=== PATIENT | female | born 1950 | race Caucasian/White ===

== ENCOUNTER → 2025-01-10 | Outpatient (CLI) | payer MEDICARE, BC, SELFPAY ==
--- NOTE | 2025-01-10 13:18 | XR_ITS ---
EXAMINATION: Lumbar spine 3 views TECHNIQUE: AP lateral, lateral lower lumbar spine 3 views Date and time: January 10, 2025, 1342 hours INDICATION: Lower back pain beginning 1 week ago. FINDINGS: Adequate alignment lumbar vertebral bodies Multiple sclerotic foci poorly defined within lumbar vertebral bodies Dense sclerotic foci versus kyphoplasty T12 No acute lumbar fracture Mild to moderate diffuse lumbar disc narrowing Prominent sclerosis involving the sacrum as well as right iliac bone and left supra-acetabular iliac bone IMPRESSION: Osteoblastic metastases Recommend whole-body bone scan follow-up Consider staging CT chest abdomen pelvis post intravenous contrast follow-up
[2025-01-10 14:56] LABS: Thyroid Stimulating Hormone 1.90 uIU/mL (0.55-4.78); Vitamin D 25 Hydroxy Total 25.2 ng/mL (7.3-40.2)
== END | disposition home or self-care (01) ==
LOC: CDIM 13:16 → COPL 13:53
PROVIDERS: PCP Family Medicine; Referring Provider Student in an Organized Health Care Education/Training Program; Visit Provider Radiology Diagnostic Radiology
DX: C79.51 Secondary malignant neoplasm of bone (principal); R53.1 Weakness
CPT/HCPCS: 36415; 72100; 82306; 84443

== ENCOUNTER → 2025-01-22 | Outpatient (CLI) | payer MEDICARE, BC, SELFPAY ==
[2025-01-22 13:24] LABS: Basophils # (Auto) 0.1 Thou/mm3 (0.0-0.2); Basophils % (Auto) 1 % (0-2.5); Eosinophils # (Auto) 0.0 Thou/mm3 (0.0-0.5); Eosinophils % (Auto) 0 % (0-10); Hematocrit 43.7 % (36.0-46.0); Hemoglobin 13.9 g/dL (12.0-16.0); Immature Granulocytes Auto 0.04 Thou/mm3 (0.00-0.00); Lymphocytes # (Auto) 1.0 Thou/mm3 (1.0-4.8); Lymphocytes % (Auto) 9 % (10-50); Mean Corpuscular HGB Conc 31.8 g/dl (31.0-37.0); Mean Corpuscular Hemoglobin 26.5 pg (25.0-35.0); Mean Corpuscular Volume 83 fL (80-100); Monocytes # (Auto) 0.7 Thou/mm3 (0.0-0.8); Monocytes % (Auto) 6 % (0-12); Neutrophils # (Auto) 9.6 Thou/mm3 (1.8-7.7); Neutrophils % (Auto) 84 % (37-80); Nucleated Red Blood Cell # 0.00 Thou/mm3 (0.00-0.00); Nucleated Red Blood Cell % 0 /100 WBC (0); Platelet Count 486 Thou/mm3 (140-440); RDW Standard Deviation 46.0 fL (36.4-46.3); Red Blood Count 5.25 Miln/mm3 (4.00-5.20); White Blood Count 11.4 Thou/mm3 (3.6-11.0)
[2025-01-22 13:35] LABS: Glucose Estimated Average 108 mg/dL (80-131); Hemoglobin A1C 5.4 % Hgb (4.8-6.0)
[2025-01-22 13:51] LABS: Alanine Aminotransferase 9 U/L (10-49); Albumin, Serum 4.7 gm/dL (3.4-4.8); Albumin/Globulin Ratio 2.0 (1.2-2.2); Alkaline Phosphatase 772 U/L (46-116); Anion Gap 14 (7-16); Aspartate Amino Transferase 41 U/L (0-34); BUN/Creatinine Ratio 24 Ratio (12-20); Bilirubin,Total 0.5 mg/dL (0.3-1.2); Blood Urea Nitrogen 17 mg/dL (9-23); Calcium 9.2 mg/dL (8.3-10.6); Calcium (Corrected) 9.2 mg/dL (8.5-10.1); Carbon Dioxide 27.9 mMol/L (20.0-31.0); Cardiac Risk Estimate 3.0 RATIO (3.7-5.6); Chloride 98 mMol/L (98-107); Cholesterol 190 mg/dL (132-200); Creatinine (Component) 0.7 mg/dL (0.6-1.3); Globulin 2.4 gm/dL (2.3-3.5); Glucose 121 mg/dL (74-106); HDL Cholesterol 64 mg/dL (40-60); LDL Cholesterol,Calculated 106 mg/dL (0-130); Osmolality,Calculated 281 (275-295); Potassium 4.0 mMol/L (3.4-5.1); Sodium 140 mMol/L (136-145); Total Protein 7.1 gm/dL (5.7-8.2); Triglycerides 99 mg/dL (30-150); eGFR > 60 See Note
== END | disposition home or self-care (01) ==
LOC: COPL 12:30
PROVIDERS: PCP Family Medicine; Referring Provider Student in an Organized Health Care Education/Training Program; Visit Provider Student in an Organized Health Care Education/Training Program
DX: Z00.00 Encounter for general adult medical examination without abnormal findings (principal)
CPT/HCPCS: 36415; 80053; 80061; 83036; 85025

== ENCOUNTER → 2025-01-23 | Outpatient (CLI) | payer MEDICARE, BC, SELFPAY ==
--- NOTE | 2025-01-23 12:02 | XR_ITS ---
Examination: CT chest with intravenous contrast CT abdomen with intravenous contrast CT pelvis with intravenous contrast 2-D coronal and sagittal reconstructions Time of exam: January 23, 2025, 1238 hours INDICATIONS: Diagnosis secondary malignant neoplasm of bone, lower back pain 2 months, osteoblastic metastases on plain films lumbar spine January 10, 2025, staging CTDI: vol (mGy) : 7.09 DLP: (mGycm): 171 Technique: Multiple axial images of the chest, abdomen and pelvis with intravenous contrast, 3.0 mm slice thickness. Images obtained post intravenous injection Isovue 370 60 cc. 2-D sagittal and coronal reconstructions. Low dose protocols were performed. One or more of the following dose reduction techniques were used; automated exposure control, adjustment of the mA and/or KV according to patient size, use of iterative reconstruction technique. Findings: No thoracic aortic aneurysmal dilatation or dissection No pulmonary artery filling defects High left para-aortic right tracheobronchial subcarinal right hilar lymphadenopathy Pulmonary mass in the right upper lobe, 6.3 x 5.0 x 7.7 cm which is compressing severely the right lower lobe bronchus coronal image 78 Large right pleural effusion 4 mm pulmonary nodule anterior segment left upper lobe 5 mm pulmonary nodule left lower lobe Miliary nodules in the right upper lobe Multiple right axillary lymph nodes, the largest 9 mm No visualized liver or splenic lesion Contracted gallbladder Spleen is not enlarged Mild nodular thickening left adrenal gland No pancreatic mass No hydronephrosis Aorta normal size No pericecal inflammatory change Retroverted uterus with abnormal markedly thickened endometrium, 22 mm Abundant stool in the rectum Thickening of the urinary bladder wall, urinary bladder is contracted Widespread osseous metastatic disease including severe pathologic fracture T11, retropulsion of this vertebral body at least 10 mm producing severe spinal stenosis Ribs sternum bones of the shoulders, sacrum pelvis and hips involved by osteoblastic metastases, expansile lesion left superior pubic ramus IMPRESSION: 6.3 x 5.0 x 7.7 cm pulmonary mass in the right upper lobe severely compressing the right lower lobe bronchus Multiple metastatic pulmonary nodules Large right malignant pleural effusion Right axillary lymphadenopathy Extensive mediastinal lymphadenopathy Mild nodular thickening left adrenal gland Abnormal markedly thickened uterine endometrium, recommend transabdominal transvaginal pelvic sonography follow-up Abnormal thickening of the urinary bladder wall, differential would include cystitis Widespread osseous metastatic disease including severe pathologic fracture T11 with severe spinal stenosis at this level, consider MRI of thoracic and lumbar spine postcontrast follow-up
== END | disposition home or self-care (01) ==
PROVIDERS: PCP Student in an Organized Health Care Education/Training Program; Referring Provider Student in an Organized Health Care Education/Training Program; Visit Provider Student in an Organized Health Care Education/Training Program
DX: R22.2 Localized swelling, mass and lump, trunk (principal); J91.0 Malignant pleural effusion; R59.0 Localized enlarged lymph nodes; E27.8 Other specified disorders of adrenal gland; N32.89 Other specified disorders of bladder; M84.48XA Pathological fracture, other site, initial encounter for fracture; M48.04 Spinal stenosis, thoracic region; R93.89 Abnormal findings on diagnostic imaging of other specified body structures; C78.00 Secondary malignant neoplasm of unspecified lung; C79.51 Secondary malignant neoplasm of bone; C34.91 Malignant neoplasm of unspecified part of right bronchus or lung; C79.9 Secondary malignant neoplasm of unspecified site
CPT/HCPCS: 71260; 74177; A4649; Q9967

== ENCOUNTER → 2025-01-27 | Outpatient (CLI) | payer MEDICARE, BC, SELFPAY ==
--- NOTE | 2025-01-27 12:30 | XR_ITS ---
Examination: Bone scan whole body, radioisotope Date and time of exam: January 27, 2025, 0803 hours INDICATIONS: Diagnosis secondary malignant neoplasm of the bone, lower back and abdominal pain beginning 2 weeks ago Technique: Study has been performed with intravenous administration of 25 mci 99M technetium MDP. Anterior, posterior whole body images are obtained. Images have been obtained including the lower extremities. Findings: Widespread osseous metastatic disease, including cervical thoracic and lumbar spine, sacrum, bones of the pelvis, bilateral hips, distal right femur and distal left femur, bilateral shoulders, right humerus, bilateral ribs, right cranial vault, left face IMPRESSION: Widespread osseous metastatic disease
== END | disposition home or self-care (01) ==
PROVIDERS: PCP Student in an Organized Health Care Education/Training Program; Referring Provider Student in an Organized Health Care Education/Training Program; Visit Provider Student in an Organized Health Care Education/Training Program
DX: C79.9 Secondary malignant neoplasm of unspecified site (principal); C79.51 Secondary malignant neoplasm of bone
CPT/HCPCS: 78306; A9503

== ENCOUNTER → 2025-02-10 | Outpatient (CLI) | payer MEDICARE, BC, SELFPAY ==
--- NOTE | 2025-02-10 10:30 | XR_ITS ---
Examination: CT chest with intravenous contrast CT abdomen with intravenous contrast CT pelvis with intravenous contrast 2-D coronal and sagittal reconstructions Time of exam: February 10, 2025, 1326 hours, comparison CT chest abdomen pelvis January 23, 2025 INDICATIONS: 7.7 cm pulmonary mass in the right upper lobe compressing the right lower lobe bronchus, metastatic pulmonary nodules, large malignant right pleural effusion, right axillary lymphadenopathy, extensive lymphadenopathy CTDI: vol (mGy) : 7.73 DLP: (mGycm): 524 Technique: Multiple axial images of the chest, abdomen and pelvis with intravenous contrast, 3.0 mm slice thickness. Images obtained post intravenous injection Isovue 370 60 cc. 2-D sagittal and coronal reconstructions. Low dose protocols were performed. One or more of the following dose reduction techniques were used; automated exposure control, adjustment of the mA and/or KV according to patient size, use of iterative reconstruction technique. Findings: Again noted large right pleural effusion No thoracic aortic aneurysm dilatation Transverse dimension main pulmonary artery segment 39 mm Stable pulmonary mass right upper lobe 5.2 x 6.4 cm encircling the right main pulmonary artery Pretracheal lymph nodes again noted Stable right axillary lymph nodes 4 mm pulmonary nodule left upper lobe, 5 mm pulmonary nodule left lower lobe Miliary nodules in the right upper lobe No visualized liver or splenic lesion No gallstones No pancreatic mass No renal or ureteral calculi Abdominal aorta is not enlarged Mild nodular thickening left adrenal gland No abdominal lymphadenopathy Abnormally thickened endometrium 28 mm Abundant stool in the rectum Thickening of the urinary bladder wall Widespread osseous metastatic disease, osteoblastic lesions involving all visualized bones, including pathologic fracture T11 with retropulsion of this vertebral body narrowing the spinal canal IMPRESSION: Pulmonary artery hypertension Again noted large mass right upper lobe encircling the right main pulmonary artery Mediastinal lymphadenopathy Metastatic pulmonary nodules Large right pleural effusion, likely malignant Widespread osseous metastatic disease, including severe pathologic fracture T11 vertebral body with retropulsion at least 10 mm producing spinal stenosis
== END | disposition home or self-care (01) ==
LOC: SCAT 09:52
PROVIDERS: PCP Student in an Organized Health Care Education/Training Program; Referring Provider Student in an Organized Health Care Education/Training Program; Visit Provider Student in an Organized Health Care Education/Training Program
DX: C79.51 Secondary malignant neoplasm of bone (principal); I27.21 Secondary pulmonary arterial hypertension; R59.0 Localized enlarged lymph nodes; C78.00 Secondary malignant neoplasm of unspecified lung; J90 Pleural effusion, not elsewhere classified; C79.9 Secondary malignant neoplasm of unspecified site
CPT/HCPCS: 71260; 74177; A4649; Q9967

== ENCOUNTER → 2025-02-17 | Outpatient (CLI) | payer MEDICARE, BC, SELFPAY ==
--- NOTE | 2025-02-17 09:35 | XR_ITS ---
Examination: Pelvic ultrasound, transabdominal, complete Technique: Transabdominal ultrasound of the pelvis performed using grayscale imaging Date and time of exam: February 17, 2025, 1024 hours INDICATIONS: Whole body pain 2 months FINDINGS: Uterus 7.7 cm endometrial solid mass 4.3 x 3.1 x 3.8 cm Endometrial stripe 3.1 cm Right ovary 2.9 cm arterial flow Left ovary 1.8 cm arterial flow Mild fluid in the cul-de-sac IMPRESSION: Solid endometrial mass 4.3 x 3.1 x 3.8 cm, differential would include malignant neoplasm of the endometrium Recommend MRI pelvis follow-up pre and postcontrast
--- NOTE | 2025-02-17 09:35 | XR_ITS ---
Examination: Transvaginal ultrasound of the pelvis, complete Technique: Transvaginal sonographic images pelvis performed using martínez scale imaging Exam date and time: February 17, 2025, 1039 hours INDICATIONS: Abnormally thickened endometrial stripe [address] examination February 10, 2025, history widespread osseous metastatic disease FINDINGS: Uterus 6.5 cm solid endometrial mass 3.4 x 3.3 x 3.9 cm Ovaries obscured by bowel gas IMPRESSION: Large vascular endometrial mass 3.4 x 3.3 x 3.9 cm, differential would include malignant neoplasm of the endometrium Recommend MRI pelvis follow-up pre and postcontrast.
== END | disposition home or self-care (01) ==
LOC: CDIM 09:20
PROVIDERS: PCP Family Medicine; Referring Provider Student in an Organized Health Care Education/Training Program; Visit Provider Student in an Organized Health Care Education/Training Program
DX: R19.09 Other intra-abdominal and pelvic swelling, mass and lump (principal)
CPT/HCPCS: 76830; 76856

== ENCOUNTER 2025-02-25 08:53 | Outpatient (RCR) | payer MEDICARE, BC, SELFPAY ==
--- NOTE | 2025-02-25 12:20 | CTCCONSULT_ITS ---
[facility] [address] [place], [place] [address] Consultation Note Date: 02/25/2025 MR#: [id number] Name: MANUEL NEGRONRLETICIA : 1950 Dx: C34.11 Malignant neoplasm of upper lobe, right bronchus or lung Attending physician. David Basilio MD Reason for consultation. Patient with suspected malignancy involving lung bone and uterus. History of Present Illness: Patient is a 74-year-old lady with symptoms of low back pain and had lumbar x-ray 01/10/2025 that revealed osteoblastic mets including sclerotic foci T12 area. Chest abdomen pelvis 01/23/2025 revealed a 6.3 x 5.0 x 7.7 central pulm mass right upper lobe severely compressing the right lower lobe bronchus. There are multiple metastatic pulmonary nodules large right malignant pleural effusion right axillar adenopathy extensive mediastinal lymphadenopathy. Bone scan 01/27/2025 revealed widespread osseous mets disease. Repeat CT abdomen pelvis 02/10/2025 revealed again the large right upper lobe mass encircling the right main pulmonary artery mediastinal lymphadenopathy metastatic pulmonary nodules right pleural effusion and osseous mets disease including pathological fracture T11 vertebral body. Pelvic ultrasound 02/17/2025 reveals solid endometrial mass 4.3 x 3.1 x 3.8 cm that suggested possible malignancy involving endometrium. Transvaginal ultrasound revealed a large vascular endometrial mass 3.4 x 3.3 x 3.9 cm. Right upper lobe lung biopsy reportedly has been ordered. Most recent labs 01/13/2025 shows WBC 11.4 hemoglobin 13.9 platelets 486 , moderate elevation of AST at 41 and marked elevation alk phos of 772. Patient feels weak and has a steady loss in weight but denies any significant pain. Past Medical History: Had chickenpox measles mumps as a child no recent major illness Meds vitamins Family history. 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 Physical Exam: General: Tired appearing lady no acute distress HEENT: Eyes nonicteric no oral lesions no cervical or cervical adenopathy CV: Chest clear station heart regular rate and rhythm ABD: Soft no organomegaly or tenderness EXT: No cyanosis clubbing or edema Neuro. Patient has no obvious signs of paralysis but feels weak overall. Assessment:#1. Patient with suspected malignancy involving lung bone uterus. #2 tumor markers CA125 CA 15-3. CEA CA 19?9 #3 lung biopsy reportedly has been ordered which will be checked. #4. MRI T-spine pelvis with and without contrast. #5. I will see her in 2 months or sooner for follow-up. Thank you for allowing me to evaluate this patient. Electronically signed by: Roly Sevilla MD, DABR 02/25/2025 12:18 PM
== END 2025-03-26 23:59 | disposition home or self-care (01) ==
LOC: SCTC 08:53
PROVIDERS: PCP Student in an Organized Health Care Education/Training Program; Referring Provider Student in an Organized Health Care Education/Training Program; Visit Provider Radiology Therapeutic Radiology
DX: C34.11 Malignant neoplasm of upper lobe, right bronchus or lung (principal); C79.51 Secondary malignant neoplasm of bone
CPT/HCPCS: 99213; G0463

== ENCOUNTER 2025-03-16 07:39 | Inpatient (IN) | payer MEDICARE, BC, SELFPAY ==
[2025-03-16] VITALS (8 sets, daily range): BP systolic 106–133; BP diastolic 67–92; PULSE 87–126; RESP 16–30; TEMP 36.1–37.8; O2SAT 94–100; BMI 22.8; BMI 24.5
--- NOTE | 2025-03-16 07:54 | EDNOTE_ITS ---
ED Weakness RME/HPI General Chief complaint: Weakness Stated complaint: GENERAL WEAKNESS Time Seen by Provider: 03/16/25 07:54 Arrival date/time: 03/16/25 07:39 RME / HPI RME / HPI Narrative: See [facility] for Dr. Sevilla's HPI documentation. Related Data Home Medications ?Medication ?Instructions ?Recorded ?Confirmed diclofenac sodium 3 % topical gel 1 applic topical BID 03/16/25 03/16/25 Allergies Allergy/AdvReac Type Severity Reaction Status Date / Time No Known Allergies Allergy Verified 03/16/25 08:06 Review of Systems Review of Systems Systems Reviewed: All systems reviewed, normal except as documented Past Medical History Past Medical History NEUROLOGIC: Negative Neurological Disorders CARDIAC: Negative Cardiac Disorders or Congestive Heart Failure RESPIRATORY: Negative Respiratory Disorders, Chronic Obstructive Pulmonary Disease (COPD) or Asthma GASTROINTESTINAL: Positive Colorectal Cancer; Negative Gastrointestinal Disorders GENITOURINARY: Negative Renal Disease ENT: Negative History of ENT Problems ENDOCRINE: Negative Endocrine Disorders, Diabetes Mellitus Type 1 or Diabetes Mellitus Type 2 HEMATOLOGIC: Negative Blood Disorders or Sickle Cell Disease OTHER HISTORY: Positive Hospitalization, Falls, Chicken Pox, Measles, Mumps, Cancer and Colorectal Cancer; Negative Autoimmune Disease, Down Syndrome, Developmental Delay, Shingles or Anesthesia Reactions Family History FAMILY HISTORY: Positive Family Cancer; Negative Family Psychiatric Problems, Family Respiratory Disorders, Family Cardiac Disorders, Family Gastrointestinal Problems, Family Genitourinary Problems, Family Endocrine Disorders, Family Reproductive Disorders or Family Musculoskeletal Disorders OTHER FAMILY HX: Mother had some type of cancer Surgical History OTHER SURGICAL HX: R.SIDE SURGERY FROM INFECTION Social History 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 Sevilla's physical exam documentation. Course Quality Measures none Orders Category Date Time Status CT Screening NOW Care 03/16/25 09:55 Completed EKG (ED ONLY) *Do not use* NOW Care 03/16/25 07:57 Completed Saline [Insert IV] NOW Care 03/16/25 07:57 Completed Straight [In and Out Catheter] X1 Care 03/16/25 07:[address] abdomen pelvis w con Stat Exams 03/16/25 09:[address] angio chest Stat Exams 03/16/25 09:[address] head/brain wo con Stat Exams 03/16/25 07:57 Completed EKG (ED Only) Stat Exams 03/16/25 07:57 Draft US venous doppler LE BI Stat Exams 03/16/25 09:55 Completed XR chest 1V portable Stat Exams 03/16/25 07:57 Completed XR shoulder RT min 2V Stat Exams 03/16/25 09:03 Completed BNP [B-Type Natriuretic Peptide] Stat Lab 03/16/25 08:30 Completed Beta Hydroxybutyrate Stat Lab 03/16/25 08:30 Completed Bilirubin,Direct Stat Lab 03/16/25 08:30 Completed Blood Culture (Lab) Stat Lab 03/16/25 08:30 Results CBC Stat Lab 03/16/25 08:30 Completed CK [Creatine Kinase] Stat Lab 03/16/25 08:30 Completed CMP [Comprehensive Metabolic Panel] Stat Lab 03/16/25 08:30 Completed CRP [C-Reactive Protein] Stat Lab 03/16/25 08:30 Completed D-Dimer Stat Lab 03/16/25 08:30 Completed ESR [Sed Rate (ESR)] Stat Lab 03/16/25 08:30 Completed Hemoglobin A1C [Glycohemoglobin w (eAG)] Stat Lab 03/16/25 08:30 Completed Lactate (Lactic Acid) Stat Lab 03/16/25 08:30 Completed Lipase Stat Lab 03/16/25 08:30 Completed Magnesium Stat Lab 03/16/25 08:30 Completed PT [Prothrombin Time with INR] Stat Lab 03/16/25 08:30 Completed PTT [Partial Thromboplastin Time] Stat Lab 03/16/25 08:30 Completed Procalcitonin Stat Lab 03/16/25 08:30 Completed TSH [Thyroid Stimulating Hormone] Stat Lab 03/16/25 08:30 Completed Troponin I Stat Lab 03/16/25 08:30 Completed UA, C/S IF [Urinalysis, C/S if Indicated] Stat Lab 03/16/25 08:30 Completed VBG [Venous Blood Gas] Stat Lab 03/16/25 08:30 Completed Azithromycin Inj [Zithromax Inj] 500 mg Med 03/16/25 13:57 Discontinued Sodium Chloride 0.9% 250 ml [Ns] 250 ml IV X1 Ondansetron Inj [Zofran Inj] Med 03/16/25 07:57 Discontinued 4 mg IVP X1 ONE Ringers Lactated 1000 ml [Lactated Ringers] 1,000 ml Med 03/16/25 07:57 Discontinued IV 500 mls/hr cefTRIAXone/D5w 1gm IV premix [Rocephin/D5w 1gm IV Med 03/16/25 13:57 Discontinued premix] 1 gm in 50 ml IV X1 Vital Signs Vital signs: Vital Signs Temperature 97.8 F 03/16/25 07:41 Pulse Rate 97 03/16/25 07:41 Respiratory Rate 16 03/16/25 07:41 Blood Pressure 122/78 03/16/25 07:41 Pulse Oximetry (%) 100 03/16/25 07:41 Oxygen Delivery Method Room Air 03/16/25 07:41 Weakness MDM Narrative MDM Narrative:: This section includes all my notes and documentations, including HPI, PE, and ED course. Hieu Sevilla MD HPI: 74-year-old female here with worsening generalized weakness for the past several months. Was diagnosed with cancer several months ago. Primary cancer unknown at this point but spread to her bones. Hasn't been able to walk even with cane or walker for the past several weeks. And today, she couldn't even pull diapers off of her due to severe weakness. No other complaints. ROS: All negative except as documented in HPI. Physical Exam: General: Alert and oriented. Appearance of severe malaise noted. Hypoxia noted. Eyes: Conjunctivae and lids clear. EOMI. PERRL. ENT: No nasal congestion. Neck: Supple. No lymphadenopathy. No JVD. Heart: RRR. Lungs: No respiratory distress. Good air movement. No rhonchi, wheezing, rales. Chest: No tenderness. Abdomen: Soft and nontender. Normal bowel sounds. No distension. No rebound or guarding. Back: No CVA tenderness. Legs: No clubbing, cyanosis, edema. Skin: Warm and dry. Neuro: Alert and oriented X 3. Cranial Nerves II-XII grossly intact. No peripheral motor deficits. Musculoskeletal: All major joints and bones are not tender with no limited ROM. I reviewed EMS notes. I reviewed all diagnostic test results: At this point, diagnoses include: Acute respiratory failure with hypoxia Pneumonia DVT (deep venous thrombosis) Metastatic disease Treatment here included: IVF Zofran 4 mg IV Zithromax 500 mg IV Rocephin 1 g IV Patient remained stable. I discussed the case with our hospitalist. About the presentation and exam and diagnostics and treatments here. And need of further care in the hospital. Will accept the patient. 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 Hieu Sevilla MD) Lab and/or radiology exams considered but not ordered:: none Interpretation Summary: Acute respiratory failure with hypoxia Pneumonia DVT (deep venous thrombosis) Metastatic disease Medications / Prescriptions Medications or Prescriptions considered but not ordered:: none Medication administrations:: Medication Administration History Discontinued Medications Acetaminophen (Acetaminophen 325 Mg Tablet) 650 mg PO Q4HR PRN PRN Reason: PAIN SCALE 1-3 (mild Stop: 04/15/25 16:38 Acetaminophen (Acetaminophen 325 Mg Tablet) 650 mg PO Q4HR PRN PRN Reason: Fever or Pain 1-3 Stop: 04/15/25 16:38 Diclofenac Sodium (Diclofenac 1% Top Gel 100 Gm Tube) 2 gm TOP Q6H PRN PRN Reason: Right shoulder pain Stop: 04/15/25 16:39 Last Admin: 03/17/25 10:58 Dose: 2 gm Documented By: JRXochitl Admin: 03/17/25 01:06 Dose: 2 gm Documented By: Admin: 03/16/25 18:18 Dose: 2 gm Documented By: TRISTIN Heparin Sodium (Porcine) (Heparin Sod Inj 5000 Unit/Ml Vial) 4,700 unit 80 unit/kg (4700 unit) IV X1 ONE; Protocol Stop: 03/16/25 15:19 Last Admin: 03/16/25 16:16 Dose: 4,700 unit Documented By: TM Co-signed By: BD Hydromorphone HCl (Hydromorphone Inj 2 Mg/Ml Vial) 1 mg IVP Q4HR PRN PRN Reason: PAIN SCALE 7-10 Stop: 03/21/25 18:45 Last Admin: 03/17/25 11:51 Dose: 1 mg Documented By: TRISTIN Lactated Ringer's (Lactated Ringers) 1,000 mls @ 500 mls/hr IV .Q2H ONE Stop: 03/16/25 09:56 Last Infusion: 03/16/25 11:09 Dose: Infused Documented By: Admin: 03/16/25 09:09 Dose: 500 mls/hr Documented By: TM Azithromycin 500 mg/ Sodium (Chloride) 250 mls @ 250 mls/hr IV X1 ONE Stop: 03/16/25 14:56 Last Infusion: 03/16/25 17:08 Dose: Infused Documented By: Admin: 03/16/25 16:08 Dose: 250 mls/hr Documented By: TM Ceftriaxone Sodium/Dextrose (Rocephin/D5w 1gm Iv Premix) 1 gm in 50 mls @ 100 mls/hr IV X1 ONE Stop: 03/16/25 14:26 Last Infusion: 03/16/25 14:46 Dose: Infused Documented By: Admin: 03/16/25 14:16 Dose: 100 mls/hr Documented By: JOB Heparin Sodium/Dextrose (Heparin In D5w Ivpb) 25,000 unit in 250 mls @ 10.614 mls/hr IV .[id number] [facility]; Protocol Stop: 03/30/25 15:29 Last Titration: 03/18/25 05:51 Dose: 0 units/kg/hr, 0 mls/hr Documented By: CCT Co-signed By: ANDREZ Admin: 03/17/25 13:40 Dose: 18 units/kg/hr, 10.614 mls/hr Documented By: JRR Co-signed By: R(2) Titration: 03/17/25 13:40 Dose: Infused Documented By: JRR Co-signed By: TRISTIN(2) Titration: 03/17/25 06:51 Dose: 18 units/kg/hr, 10.614 mls/hr Documented By: CCT Co-signed By: R Titration: 03/17/25 00:41 Dose: 18 units/kg/hr, 10.614 mls/hr Documented By: CCT Co-signed By: CG Admin: 03/16/25 16:17 Dose: 18 units/kg/hr, 10.614 mls/hr Documented By: TM Co-signed By: BD Doxycycline Hyclate 100 mg/ (Sodium Chloride) 100 mls @ 100 mls/hr IV BID RUFINO Stop: 03/24/25 08:59 Last Admin: 03/17/25 20:08 Dose: 100 mls/hr Documented By: Infusion: 03/17/25 09:24 Dose: Infused Documented By: Admin: 03/17/25 08:24 Dose: 100 mls/hr Documented By: JRR Piperacillin Sod/Tazobactam (Sod 4.5 gm/ Sodium Chloride) 100 mls @ 200 mls/hr IV Q8HR RUFINO; Protocol Stop: 03/23/25 21:59 Last Admin: 03/17/25 22:01 Dose: 200 mls/hr Documented By: Infusion: 03/17/25 13:57 Dose: Infused Documented By: Admin: 03/17/25 13:27 Dose: 200 mls/hr Documented By: Infusion: 03/17/25 05:56 Dose: Infused Documented By: Admin: 03/17/25 05:26 Dose: 200 mls/hr Documented By: Infusion: 03/16/25 22:10 Dose: Infused Documented By: Admin: 03/16/25 21:40 Dose: 200 mls/hr Documented By: CCT Sodium Chloride (Ns) 1,000 mls @ 100 mls/hr IV .Q10H RUFINO Stop: 04/16/25 10:44 Last Admin: 03/17/25 22:02 Dose: Not Given Documented By: CCT Non-Admin Reason: Discontinued Infusion: 03/17/25 22:01 Dose: Infused Documented By: Admin: 03/17/25 11:24 Dose: 100 mls/hr Documented By: JRR Sodium Chloride (Ns) 500 mls @ 999 mls/hr IV .Q31M ONE Stop: 03/17/25 11:02 Last Admin: 03/17/25 10:46 Dose: 999 mls/hr Documented By: JRR Morphine Sulfate (Morphine Sulfate Iv Drip 100mg/100ml) 100 mls @ 1 mls/hr IV .Q24H PRN; Protocol PRN Reason: PAIN (COMFORT CARE) Stop: 03/23/25 04:51 Last Titration: 03/18/25 05:58 Dose: 0 mg/hr, 0 mls/hr Documented By: CCT Co-signed By: MLKirt Admin: 03/18/25 05:38 Dose: 1 mg/hr, 1 mls/hr Documented By: MLKirt Co-signed By: CCT Midodrine (Midodrine 5 Mg Tablet) 5 mg PO X1 ONE Stop: 03/18/25 00:07 Last Admin: 03/18/25 04:58 Dose: Not Given Documented By: CCT Non-Admin Reason: Per Protocol Morphine Sulfate (Morphine Sulf Inj 4 Mg/Ml Vial) 2 mg IVP Q4HR PRN PRN Reason: PAIN SCALE 4-6 Stop: 03/21/25 18:45 Last Admin: 03/17/25 08:36 Dose: 2 mg Documented By: Admin: 03/17/25 00:26 Dose: 2 mg Documented By: CCT Morphine Sulfate (Morphine Sulf Inj 4 Mg/Ml Vial) 5 mg IVP X1 ONE Stop: 03/18/25 04:46 Last Admin: 03/18/25 04:55 Dose: 5 mg Documented By: CCT Morphine Sulfate (Morphine Sulf Inj 4 Mg/Ml Vial) Confirm Administered Dose 8 mg .ROUTE .STK-MED ONE Stop: 03/18/25 04:50 Last Admin: 03/18/25 04:58 Dose: Not Given Documented By: CCT Non-Admin Reason: Duplicate Medication on eMAR Ondansetron HCl (Ondansetron Inj 2 Mg/Ml Inj 2 Ml) 4 mg IVP X1 ONE; Protocol Stop: 03/16/25 07:58 Last Admin: 03/16/25 09:09 Dose: 4 mg Documented By: TM Oxycodone/Acetaminophen (Oxycodone/Apap 5/325 Tablet) 1 tab PO Q6HR PRN PRN Reason: Pain Scale 4-10 (Severe Stop: 03/21/25 16:38 Last Admin: 03/16/25 17:26 Dose: 1 tab Documented By: TM Pantoprazole Sodium (Pantoprazole Inj 40 Mg Vial) 40 mg IVP BID RUFINO Stop: 04/16/25 10:44 Last Admin: 03/17/25 20:09 Dose: 40 mg Documented By: Admin: 03/17/25 10:46 Dose: 40 mg Documented By: JRR Potassium Chloride (Potassium Chloride 20 Meq Tabcr) 20 meq PO X1 ONE Stop: 03/17/25 00:06 Last Admin: 03/17/25 00:27 Dose: 20 meq Documented By: CCT Scopolamine (Scopolamine 1 Mg Tdsy) 1 mg TOP Q3D RUFINO Stop: 04/17/25 04:59 Last Admin: 03/18/25 05:25 Dose: 1 mg Documented By: MLD Sodium Chloride (Sodium Chloride Rt 10% 15 Ml Nebu) 5 ml INH X1 ONE Stop: 03/16/25 18:53 Last Admin: 03/17/25 02:27 Dose: Not Given Documented By: KB Non-Admin Reason: Patient Refused Treatment here FROM ME included: IVF Zofran 4 mg IV Zithromax 500 mg IV Rocephin 1 g IV Consultations Consultation(s) initiated? (list below): Yes Consultation #1 (Physician, Specialty, Details): I discussed the case with our hospitalist. About the presentation and exam and diagnostics and treatments here. And need of further care in the hospital. Will accept the patient. Diagnosis Weakness Differential Diagnosis: acute myocardial infarction, anemia, hypoglycemia, hypothyroidism, rhabdomyolysis, sepsis and dehydration Most likely diagnosis given after review of the tests above:: Treatment here included: IVF Zofran 4 mg IV Zithromax 500 mg IV Rocephin 1 g IV Admission Indicated Admission indicated?: indicated Explain why admission is indicated or not indicated:: Acute respiratory failure with hypoxia Pneumonia DVT (deep venous thrombosis) Metastatic disease Admission Request Was there a request for admission?: Yes Admission Attestation Admission request attestation: Discussed case with Hospitalist service regarding admission. Discussed patients ED course, exam findings, labs, and radiology results. Agreed to accept the patient for admission. Disposition Plan Disposition Plan: Admit Discharge Plan Plan Patient Disposition: Admit Acute Care w/in Hospital Problem List Clinical Impression: Acute respiratory failure with hypoxia, Pneumonia, DVT (deep venous thrombosis)
--- NOTE | 2025-03-16 07:57 | XR_ITS ---
AP upright portable chest film on 03/16/2025 at 9:01 a.m. INDICATION: Shortness of breath FINDINGS: There is moderately prominent cardiomegaly, there is a very large pleural effusion on the right and there is complete atelectasis of the right middle and right lower lobes. (This is confirmed as atelectasis based on the CT) There is an exceedingly tiny left basilar pleural effusion The right lower lobe bronchus terminates abruptly suggest possibility of bronchogenic carcinoma with secondary atelectasis There is extensive metastatic disease involving the distal right clavicle, acromion process, the head and shaft of the right humerus there are multiple areas of metastatic disease involving the right rib cage. On the left I do not see any areas of definite metastatic disease. There is extensive blastic metastatic disease noted throughout the lower third of the dorsal spine with pathologic compression fractures and numerous vertebral IMPRESSION: 1. Moderate cardiomegaly, very large pleural effusion on the right very tiny pleural effusion on the left 2. Complete atelectasis of the right middle and right lower lobes, abrupt cut off of the right lower lobe bronchus indicating possibility of bronchogenic carcinoma with secondary atelectasis 3: There is widespread and very extensive metastatic disease involving all visible bones, predominantly blastic metastatic disease with a few areas of lytic expansile metastasis
--- NOTE | 2025-03-16 07:57 | XR_ITS ---
Examination: CT brain head without contrast. 2-D sagittal coronal reconstructions Date and time of exam: March 16, 2025, 0851 hours INDICATIONS: Onset generalized weakness today CTDI: vol (mGy): 47.7 DLP: (mGycm): 948 Technique: Multiple CT axial sections of the brain have been obtained, 5 mm slice thickness. Contrast has not been administered. 2-D sagittal, coronal reconstructions have been obtained Low dose protocols were performed. One or more of the following dose reduction techniques were used; automated exposure control, adjustment of the mA and/or KV according to patient size, use of iterative reconstruction technique. Findings: No significant ventricular enlargement. Intra-axial or extra-axial hemorrhage density is not seen. No mass effect or midline shift Basal cisterns are not remarkable. Fourth ventricle is midline. 35 mm area of bone destruction involving the right frontal bone, axial image 17 Impression: Negative for acute hemorrhage, mass effect or midline shift Findings most consistent with osseous metastatic disease involving the right frontal bone Consider MRI brain follow-up pre and postcontrast, Please see the CT chest abdomen and pelvis report February 10, 2025, as well as the whole body bone scan report
--- NOTE | 2025-03-16 07:57 | EKG_ITS ---
[facility] Test Date: 2025-03-16 Pat Name: MANUEL IBRAHIM Department: Room: - Gender: Female Gate Operator: : 1950 Requested By: Hieu Leung Order Number: [id number] Reading MD: Hieu Leung Measurements Intervals [place] Rate: 85 P: 41 SD: 157 QRS: -58 QRSD: 105 T: 31 QT: 361 QTc: 431 Interpretive Statements SINUS RHYTHM LEFT ANTERIOR FASCICULAR BLOCK [QRS AXIS <= -45, QR IN I, RS IN II] No previous ECG available for comparison /[id number]/S0/[id number].pdf
[2025-03-16 08:39] LABS: Base Excess, Venous 6 (-3-3); Lactate (Lactic Acid) 1.0 mMol/L (0.4-2.0); O2 Saturation, Venous 31 % (96-97); PCO2, Venous 48 mmHg (36-56); PO2, Venous 20 mmHg (15-58); pH, Venous 7.42 (7.33-7.66)
[2025-03-16 08:43] LABS: Basophils # (Auto) 0.1 Thou/mm3 (0.0-0.2); Basophils % (Auto) 1 % (0-2.5); Eosinophils # (Auto) 0.0 Thou/mm3 (0.0-0.5); Eosinophils % (Auto) 0 % (0-10); Hematocrit 40.2 % (36.0-46.0); Hemoglobin 12.9 g/dL (12.0-16.0); Immature Granulocytes Auto 0.01 Thou/mm3 (0.00-0.00); Lymphocytes # (Auto) 0.8 Thou/mm3 (1.0-4.8); Lymphocytes % (Auto) 10 % (10-50); Mean Corpuscular HGB Conc 32.1 g/dl (31.0-37.0); Mean Corpuscular Hemoglobin 27.0 pg (25.0-35.0); Mean Corpuscular Volume 84 fL (80-100); Monocytes # (Auto) 0.6 Thou/mm3 (0.0-0.8); Monocytes % (Auto) 8 % (0-12); Neutrophils # (Auto) 6.4 Thou/mm3 (1.8-7.7); Neutrophils % (Auto) 81 % (37-80); Nucleated Red Blood Cell # 0.00 Thou/mm3 (0.00-0.00); Nucleated Red Blood Cell % 0 /100 WBC (0); Platelet Count 375 Thou/mm3 (140-440); RDW Standard Deviation 53.3 fL (36.4-46.3); Red Blood Count 4.78 Miln/mm3 (4.00-5.20); White Blood Count 7.9 Thou/mm3 (3.6-11.0)
[2025-03-16 08:54] LABS: Sed Rate (ESR) 20 mm/hr (0-30)
[2025-03-16 08:59] LABS: Beta Hydroxybutyrate 0.3 mmol/L (<0.6)
--- NOTE | 2025-03-16 09:03 | XR_ITS ---
Examination: Shoulder, right, 3 views Technique: Shoulder AP internal rotation, AP external rotation, Y view shoulder, 3 views Exam date and time : March 16, 2025, 0905 hours INDICATION: Patient fell 1 week ago with injury to the shoulder, shoulder pain. FINDINGS: Severe osteopenia Old fracture distal right clavicle Dense appearing calcification or sclerosis involving the acromion Marked sclerosis involving the mid humeral shaft with fracture Chest partially visualized shows significant heart failure with large right pleural effusion and sclerotic lower dorsal vertebral bodies IMPRESSION: Findings most consistent with osteoblastic metastatic disease involving the acromion and the proximal humeral shaft as well as lower dorsal vertebral bodies, please see the CT chest abdomen report February 10, 2025 Also note prominent CHF with large right pleural effusion
[2025-03-16] MEDS: RINGERS LACTATED 1000 ML 1,000 ML 500 ML IV (09:09)
[2025-03-16] MEDS: ONDANSETRON INJ 2 MG/ML INJ 2 ML 4 MG IVP (09:09)
[2025-03-16 09:13] LABS: Collection Type, Urine Clean Catch; Squamous Epithelial Cell,Urine 0 /hpf (0-5)
[2025-03-16 09:14] LABS: D-Dimer 2480 ng/mL (<600)
[2025-03-16 09:40] LABS: Bilirubin,Urine Negative (Negative); Blood,Urine Negative (Negative); Clarity,Urine Clear (Clear/Hazy); Color,Urine Yellow (Lt Yel-Yel); Culture Indicated,Urine Not Indicated; Glucose, Urine Negative (Negative); Ketones,Urine Negative (Negative); Leukocyte Esterase,Urine Negative (Negative); Nitrite,Urine Negative (Negative); PH,Urine 5.5 (5.0-7.0); Protein,Urine Trace (Neg - Trace); RBC,Urine 4 /hpf (0-3); Specific Gravity,Urine 1.028 (1.001-1.035); Urobilinogen,Urine Negative mg/dL (0.0-1.0); WBC,Urine 1 /hpf (0-5)
--- NOTE | 2025-03-16 09:55 | XR_ITS ---
Examination: Venous duplex lower extremity sonogram, bilateral. Date and time of exam: March 16, 2025, 10:50 a.m. INDICATIONS: Leg weakness and edema 3 weeks, elevated D-dimer today Technique: Multiple sonographic images of the deep venous system have been obtained. B-mode/2-D grayscale imaging of vascular structures and Doppler spectral analysis (waveforms) and color performed Both legs are examined. Findings: Positive for deep vein thrombus involving the right common femoral right superficial femoral veins and superficial greater saphenous vein Positive for thrombus involving the left common femoral, superficial femoral, popliteal, peroneal veins and superficial greater saphenous vein IMPRESSION: Extensive bilateral occlusive deep vein thrombus
--- NOTE | 2025-03-16 09:55 | XR_ITS ---
Examination: CT abdomen with intravenous contrast CT pelvis with intravenous contrast 2-D coronal reconstructions 2-D sagittal reconstructions Date and time of exam: March 16, 2025, 1158 hours Comparison February 10, 2025 INDICATIONS: History pulmonary tumor, large right pleural effusion, widespread metastatic osseous disease, abdominal pain and weakness today. CTDI: vol (mGy) 13.4 DLP: (mGycm) 674 Technique: Multiple axial sections of the abdomen and pelvis have been obtained. 64 slice high-resolution scanner used. 3 mm axial sections have been obtained, post intravenous injection 60 cc Isovue-370 2-D sagittal, coronal reconstructions obtained. Low dose protocols were performed. One or more of the following dose reduction techniques were used; automated exposure control, adjustment of the mA and/or KV according to patient size, use of iterative reconstruction technique. Findings: No visualized liver or splenic lesion Contracted gallbladder No pancreatic mass Nodular thickening both adrenal glands Abundant stool throughout the colon Aorta is not enlarged No swapna bowel obstruction Normal appendix No diverticulitis Abundant stool in the rectum Anteverted uterus with markedly abnormal thickened endometrium Bladder intact Widespread osteoblastic metastatic disease involving all visualized osseous structures with pathologic compression T11 with retropulsion of this vertebral body IMPRESSION: Negative for bowel obstruction Moderate stool throughout the entire colon large amount of stool in the rectum Normal appendix No diverticulitis Markedly abnormal uterine endometrium, recommend pelvic sonography to exclude endometrial hyperplasia versus malignant neoplasm of the endometrium Widespread osseous metastatic disease again noted
--- NOTE | 2025-03-16 09:55 | XR_ITS ---
Examination: CTA chest with intravenous contrast 2-D reconstructions 3-D reconstructions, vascular Date and time of exam: March 16, 2025, 1145 hours COMPARISON: February 10, 2025 CTDI: vol (mGy) 9.97 DLP: (mGycm) 358 Technique: Multiple axial sections of the thorax have been obtained. 3 mm slice thickness, from below the hemidiaphragms to above the apices of the lungs. Mediastinal and lung density settings have been obtained. 2-D sagittal and coronal reconstructions. 3-D angiographic renderings, 3-D volume renderings, 3D post processing, vascular maximum intensity projections obtained. Contrast administered is 100 cc Isovue-370. Low dose protocols were performed. One or more of the following dose reduction techniques were used; automated exposure control, adjustment of the mA and/or KV according to patient size, use of iterative reconstruction technique. Findings: Large right pleural effusion No thoracic aortic aneurysmal dilatation or dissection Main pulmonary artery segment is enlarged, 34 mm No pulmonary artery filling defects Pulmonary mass in the right lung again noted encircling the right main pulmonary artery and right lower lobe pulmonary artery branches Subcentimeter pulmonary nodules in the left lung Diffuse pneumonia in the right lung Prominent vascular congestion Minimal left pleural fluid No visualized liver or splenic lesion No pancreatic mass Nodular thickening both adrenal glands Visualized abdominal aorta is not enlarged Prominent osteopenia IMPRESSION: Pulmonary artery hypertension Negative for pulmonary artery emboli Large right pleural effusion Pulmonary mass again noted right lung impinging upon the right main pulmonary artery and right lower lobe pulmonary artery branches Subcentimeter nodules left lung Prominent vascular congestion Diffuse pneumonia right lung
[2025-03-16 10:06] LABS: Alanine Aminotransferase 12 U/L (10-49); Albumin, Serum 3.9 gm/dL (3.4-4.8); Albumin/Globulin Ratio 1.2 (1.2-2.2); Alkaline Phosphatase 949 U/L (46-116); Anion Gap 11 (7-16); Aspartate Amino Transferase 68 U/L (0-34); BUN/Creatinine Ratio 32 Ratio (12-20); Bilirubin,Direct 0.2 mg/dL (0.0-0.3); Bilirubin,Total 0.7 mg/dL (0.3-1.2); Blood Urea Nitrogen 16 mg/dL (9-23); C-Reactive Protein 2.7 mg/dL (0.0-0.9); Calcium 9.2 mg/dL (8.3-10.6); Calcium (Corrected) 9.3 mg/dL (8.5-10.1); Carbon Dioxide 27.2 mMol/L (20.0-31.0); Chloride 101 mMol/L (98-107); Creatine Kinase 54 U/L (34-171); Creatinine (Component) 0.5 mg/dL (0.6-1.3); Estimated Creatinine Clearance 83.9 mL/min (>60); Globulin 3.3 gm/dL (2.3-3.5); Glucose 90 mg/dL (74-106); Lipase 27 U/L (12-53); Magnesium 2.2 mg/dL (1.6-2.6); Osmolality,Calculated 278 (275-295); Potassium 3.8 mMol/L (3.4-5.1); Procalcitonin 0.05 ng/ml (0.0-0.49); Sodium 139 mMol/L (136-145); Thyroid Stimulating Hormone 1.34 uIU/mL (0.55-4.78); Total Protein 7.2 gm/dL (5.7-8.2); Troponin I 0.038 ng/mL (0.0-0.045); eGFR > 60 See Note
[2025-03-16 11:54] LABS: INR 1.1 (0.9-1.3); Partial Thromboplastin Time 25.4 Seconds (22.0-36.0); Prothrombin Time 12.1 Seconds (9.0-12.2)
[2025-03-16 13:07] LABS: Glucose Estimated Average 103 mg/dL (80-131); Hemoglobin A1C 5.2 % Hgb (4.8-6.0)
[2025-03-16 13:40] LABS: B-Type Natriuretic Peptide 59 pg/mL (0-100)
--- NOTE | 2025-03-16 14:13 | PC.NURSE ---
DR. WRAY NOTIFIED PATIENT WAS SATURATING 86% ON ROOM AIR. PATIENT PLACED ON 2L VIA NASAL CANNULA, PATIENT NOW SATURATING 93%.
[2025-03-16] MEDS: cefTRIAXone/D5w 1gm IV premix 1 GM/50 ML BAG IV (14:16)
--- NOTE | 2025-03-16 14:56 | ESHP_ITS ---
<Statement entered by Jocelyn Oconnor MD - 03/21/25 08:34> I reviewed above note and agree with findings and plans. I have also personally examined the patient with medicine team and went over assessment and plan with medical team including product development intern and resident physician. 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 She presented to the ED on 03/16/25 with generalized weakness and 30 pounds of weight loss over the past year. Imaging revealed metastatic disease, including osteoblastic metastasis to the thoracic spine, lung nodules, and endometrial thickening. She was diagnosed with multiple DVTs in both legs, including the right common femoral, superficial femoral, and saphenous veins, and left common femoral, superficial femoral, popliteal, peroneal, and greater saphenous veins. She was started on heparin drip and cardiology was consulted. 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 Oncology has been consulted, and tests are pending. A thoracentesis with fluid pathology is planned. She also has sinus tachycardia with frequent PVCs, likely due to pleural effusion and hypoxia and will continue to monnitor. I?ve reviewed the note and agree with this assessment and plan, with the exceptions outlined above. I personally went over the labs, imaging, home medications, and prior records, and examined the patient. The case was also reviewed with the attending physician. Please note: this document was transcribed using voice recognition technology; minor inaccuracies may be present. Leonard Stoner DO PGY II Documentation for date of: 03/16/25 HPI History of Present Illness Chief complaint: Generalized Weakness History of present illness: Mrs. Alcaraz is a 74 years old female with history of lung nodule and osteoblastic metastasis involving thoracic area presents to the ED for generalized weakness on 03/16/25. Per patient, she does not regularly follow up with a doctor. The last time when she saw one was reported to be in Dec, 2024 at [facility] for back pain, where they found an lung nodule on her chest XR. Since then, the patient had became progressively weak. On 03/15/25 (the day prior to admission), the patient's can no longer assist her with walking due to left leg paralysis and right leg weakness, which prompted them to seek care in the ER. Patient stated that since last , she started on a diet, and had lost 30 pounds, but did not think her weight loss was due to cancer. She denies night sweat, cough, nausea, chest pain, shortness of breathe, but does endorse malaise and generalized weakness that had became worse recently. Upon chart review, it was noted patient had seen Dr. Sevilla (oncology), and was recommended and scheduled for an upcoming lung nodule biopsy. Per Dr. Sevilla's note, patient has right upper lobe pulmonary mass, multiple metastatic pulmonary nodules, extensive mediastinal lymadenopathym widespread osseous metastatic disease, and solid endometrial mass. She was admitted for generalized weakness likely secondary to widespread metatstatic disease. ED Course In the ED, Temp 97.9, HR 97, RR 16, BP 122/78, 100%RA. WBC 7.9, Hgb 12.9 Plt 375, D-dimer 2480, Na 139, K 3.8, Cr 0.5, BUN 16, ALP 949. Head CT : Negative for acute hemorrhage, mass effect or midline shift, Findings most consistent with osseous metastatic disease involving the right frontal bone. Shoulder XR : Findings most consistent with osteoblastic metastatic disease involving the acromion and the proximal humeral shaft as well as lower dorsal vertebral bodies, please see the CT chest abdomen report February 10, 2025. Also note prominent CHF with large right pleural effusion. CT abdomen Markedly abnormal uterine endometrium, recommend pelvic sonography to exclude endometrial hyperplasia versus malignant neoplasm of the endometrium. Widespread osseous metastatic disease again noted. Chest CTA : Negative for pulmonary artery emboli. Large right pleural effusion. Pulmonary mass again noted right lung impinging upon the right main pulmonary artery and right lower lobe pulmonary artery branches. Subcentimeter nodules left lung. Venous doppler : Extensive bilateral occlusive deep vein thrombus. Patient was given 1L LR and Rocephin 1g x1. She was started on heparin drip per DVT protocol. ROS * Constitutional: No resp distress, a/o x 3, denies fever/chills. * GI: Denies nausea, vomiting. * CV: Denies chest pain or palpitations. * Resp: Denies dyspnea, orthopnea, shortness of breathe * : Denies dysuria, CVA tenderness, suprapubic tenderness. * Neuro: Denies dizziness. Lower extremity numbness, left lower leg paralysis, right lower leg weakness. Past Medical History * Lung nodule Social History * Lives at home, independent baseline with walker, then wheelchair, now bed bound. * Denies drug, smoking. 1 glass of wine per day. Surgical History * Denies Allergies * NKDA Home Meds * None Exam Vital Signs Temp Pulse Resp BP Pulse Ox O2 Del Method 99.2 F 114 H 20 110/92 H 94 L Room Air 03/16/25 14:38 03/16/25 14:38 03/16/25 14:38 03/16/25 14:38 03/16/25 14:38 03/16/25 14:38 Narrative Exam General: Alert, oriented, in no acute distress. GCS 15. HEENT: Normocephalic, atraumatic. Neck: Supple, no JVD. Cardiovascular: Regular rate and rhythm. No murmurs, rubs, or gallops. Respiratory: Diminished lung sound to R lung. Abdomen: Soft, nontender, nondistended. Musculoskeletal: Paralysis to LLE. Weakness to RLE. RUE abduction weakness. Skin: Warm, dry, intact. No rashes or lesions. Swollen LE. Neurological: Alert, oriented. Cranial nerves II-XII intact. Numbness to LE. Psychiatric: Calm, cooperative, appropriate mood and affect. Results: Labs 03/16/25 08:30 03/16/25 08:30 Labs: Short CBC 03/16/25 Range/Units 08:30 WBC 7.9 (3.6-11.0) Thou/mm3 Hgb 12.9 (12.0-16.0) g/dL Hct 40.2 (36.0-46.0) % Plt Count 375 (140-440) Thou/mm3 BMP 03/16/25 08:30 Sodium 139 Potassium 3.8 Chloride 101 Carbon Dioxide 27.2 BUN 16 Creatinine 0.5 L Glucose 90 Calcium 9.2 Cardiac Enzymes 03/16/25 Range/Units 08:30 Total Creatine Kinase 54 (34-171) U/L Troponin I 0.038 (0.0-0.045) ng/mL Liver Function 03/16/25 Range/Units 08:30 Total Bilirubin 0.7 (0.3-1.2) mg/dL Direct Bilirubin 0.2 (0.0-0.3) mg/dL AST 68 H (0-34) U/L ALT 12 (10-49) U/L Alkaline Phosphatase 949 H (46-116) U/L Albumin 3.9 (3.4-4.8) gm/dL Urine 03/16/25 Range/Units 08:30 Urine Color Yellow (Lt Yel-Yel) Urine Clarity Clear (Clear/Hazy) Urine pH 5.5 (5.0-7.0) Ur Specific [place] 1.028 (1.001-1.035) Urine Protein Trace (Neg - Trace) Urine Glucose (UA) Negative (Negative) ABG Interpretation ABG results: 03/16/25 08:30 VBG pH 7.42 VBG pCO2 48 VBG pO2 20 VBG Base Excess 6 H Quality Measures Quality Measures VTE prophylaxis Advance care planning discussed with:: patient Medications Home Medications and Allergies Allergies Allergy/AdvReac Type Severity Reaction Status Date / Time No Known Allergies Allergy Verified 03/16/25 08:06 Visit Medications Discontinued Medications Lactated Ringer's (Lactated Ringers) 1,000 mls @ 500 mls/hr IV .Q2H ONE Stop: 03/16/25 09:56 Last Infusion: 03/16/25 11:09 Dose: Infused Azithromycin 500 mg/ Sodium (Chloride) 250 mls @ 250 mls/hr IV X1 ONE Stop: 03/16/25 14:56 Ceftriaxone Sodium/Dextrose (Rocephin/D5w 1gm Iv Premix) 1 gm in 50 mls @ 100 mls/hr IV X1 ONE Stop: 03/16/25 14:26 Last Admin: 03/16/25 14:16 Dose: 100 mls/hr Ondansetron HCl (Ondansetron Inj 2 Mg/Ml Inj 2 Ml) 4 mg IVP X1 ONE; Protocol Stop: 03/16/25 07:58 Last Admin: 03/16/25 09:09 Dose: 4 mg Assessment & Plan Plan Mrs. Alcaraz is a 74 years old female with history of lung nodule and osteoblastic metastasis involving thoracic area presents to the ED for generalized weakness on 03/16/25. She had 30 pounds weight loss in the past year. She was found to have osteoblastic metastasis disease to thoracic spine, endometrium thickening, and lung nodules. She was admitted for generalized weakness secondary to metastatic disease. #Bilateral DVT #Right common femoral DVT #Right superficial femoral DVT #Right superficial saphenous DVT #Left common femoral DVT #Left superficial femoral DVT #Left popliteal DVT #Left peroneal DVT #Left superficial greater saphenous DVT In the ED, found to have elevated d-dimer and swollen B/L LE swelling. - Heparin drip per DVT protocol. - Cardiology consulted, appreciate recs #Metastatic lung cancer, pulmonary nodules #Osteoblastic disease of acromion #Osteoblastic disease of proximal humeral shaft #Osteoblastic disease of lower dorsal vertebral bodies #Osseous metastatic disease, right frontal bone #Large mass, right upper lobe #Mediastinal lymphadenopathy #Large right plerual effusion, likely malignant #Abnormal uterine endometrium Found to have osteoblastic metastases initiallt on 01/10/25 due to back pain. Images done in the ED revealed above findings. - Oncology consulted, appreciate recs - Pending CA 125, 199, 153, and CEA - Plan for US thoracentesis with fluid pathology - MMPR (Tylenol, Diclofenac topical), may consider gabapentin. #Sinus tachycardia with frequent PVCs As evident in EKG done in ED. - treat underlying cause, likely due to right pleural effusion/hypoxia - Replete electrolyte with goal of K >4, Mg > 2. Health maintenance Dispo: Thoracentesis, oncology recs. DVT prophylaxis: HEPARIN gtt GI prophylaxis: N/A Antibiotics: N/A Bowel Regimen: N/A Diet: Cardiac diet, NPO after midnight Lines: Peripheral IV Code status: DNR Case discussed with my senior resident Dr. Stoner Case discussed with my attending Dr. Anastasia Olivo, PGY 1
--- NOTE | 2025-03-16 15:16 | EKG_ITS ---
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1950 Requested By: Vasyl Olivo Order Number: [id number] Reading MD: Vasyl Olivo Measurements Intervals [place] Rate: 126 P: 46 AR: 148 QRS: 267 QRSD: 106 T: 62 QT: 418 QTc: 605 Interpretive Statements SINUS TACHYCARDIA WITH FREQUENT VENTRICULAR PREMATURE COMPLEXES PATTERN CONSISTENT WITH PULMONARY DISEASE POSSIBLE RIGHT VENTRICULAR HYPERTROPHY [SOME/ALL OF: PROMINENT R IN V1, LATE TRANSITION, RAD, ZULEIKA, SSS] Compared to ECG 03/16/2025 08:29:27 Ventricular premature complex(es) now present Sinus rhythm no longer present Left anterior fascicular block no longer present /store/S0/[id number]/[id number].pdf
[2025-03-16] MEDS: AZITHROMYCIN INJ 500 MG in SODIUM CHLORIDE 0.9% 250 ML 250 ML 250 MG IV (16:08)
[2025-03-16] MEDS: HEPARIN SOD INJ 5000 UNIT/ML VIAL 4700 UNIT IV (16:16)
[2025-03-16] MEDS: Heparin/D5w 25K 250 ML Ivpb 25,000 UNIT/250 ML BAG 10.614 UNIT IV (16:17)
--- NOTE | 2025-03-16 16:19 | ECHO_ITS ---
Patient Info Name: Melba Lacy Siterlet Age: 74 years : 1950 Gender: Female Ht: 155 cm Wt: 59 kg BSA: 1.60 m2 BP: 121 / 86 mmHg HR: 104 bpm Exam Date: 03/17/2025 6:26 AM Admit Date: 03/16/2025 Site: [facility] Room Number: [id number] Patient Status: I Exam Type: CA echo doppler complete Variety Performer: Catarina Jaime Ordering Physician: Vasyl Olivo Study Info Indications DVT, cancer - Primary Location: S2NX Left Ventricular Outflow Tract Name Value Normal LVOT 2D LVOT Diameter 1.9 cm LVOT Doppler LVOT Peak Velocity 106 cm/s LVOT Mean Gradient 2 mmHg LVOT VTI 18 cm LVOT VTI/AV VTI Ratio 0.7 LVOT Stroke Volume 52 ml Pulmonic Valve Name Value Normal PV Doppler PV Peak Velocity 67 cm/s Mitral Valve Name Value Normal MV Doppler MV Mean Gradient 1 mmHg MV Decel Harmon 252 cm/s2 MV PHT 54 ms MV Area (PHT) 4.1 cm2 4.0-5.0 MV Area (Cont Eq VTI) 1.8 cm2 MV Diastolic Function MV E Peak Velocity 47 cm/s MV A Peak Velocity 82 cm/s MV E/A 0.6 MV Annular TDI MV Septal e' Velocity 7.1 cm/s MV E/e' (Septal) 6.7 MV Lateral e' Velocity 10.0 cm/s MV E/e' (Lateral) 4.7 MV e' Average 8.54 cm/s MV E/e' (Average) 5.7 Tricuspid Valve Name Value Normal TV Regurgitation Doppler TR Peak Velocity 337 cm/s Estimated PAP/RSVP RA Pressure 3 mmHg <=5 PA Systolic Pressure 48 mmHg <36 RV Systolic Pressure 48 mmHg <36 TV Annular TDI TV Lateral Delphine s' Velocity 13.4 cm/s >=9.5 Aortic Valve Name Value Normal AV 2D/MM AV Cusp Sep (MM) 1.6 cm AV Doppler AV Peak Velocity 141 cm/s AV Mean Gradient 4 mmHg AV VTI 25 cm AV Area (Cont Eq VTI) 2.1 cm2 >=3.0 AV Area (Cont Eq Oswald) 2.1 cm2 AV DI (Oswald) 0.75 AV Regurgitation 2D LVOT Area 2.8 cm2 Ventricles Name Value Normal LV Dimensions 2D/MM IVS Diastolic Thickness (2D) 0.8 cm 0.6-0.9 LVID Diastole (2D) 4.8 cm 3.8-5.2 LVIW Diastolic Thickness (2D) 0.9 cm 0.6-0.9 LVID Systole (2D) 3.4 cm 2.2-3.5 LVOT Diameter 1.9 cm LV Mass (2D Cubed) 137.08 g 67.00-162.00 LV Mass Index (2D Cubed) 85 g/m2 43-95 Relative Wall Thickness (2D) 0.38 <=0.42 IVS/LVIW Diastolic Thickness (2D) 0.89 0.00-1.50 LV Fractional Shortening/Ejection Fraction 2D/MM LV Fractional Shortening (2D) 29 % 27-45 LV EF (2D Teichholz) 56 % RV Dimensions 2D/MM TV Lateral Delphine s' Velocity 13.4 cm/s >=9.5 Atria Name Value Normal LA Dimensions LA Volume (4C A-L) 34 ml LA Volume (BP A-L) 38 ml Left Ventricle Left ventricular chamber dimension is normal. Left ventricular systolic function is normal with visually estimated ejection fraction of 55-60%. There is normal geometry noted in the left ventricle. Left ventricular segmental wall motion is normal. There is grade I diastolic dysfunction in the left ventricle. Right Ventricle Right ventricular chamber dimension is mildly enlarged. Right ventricular systolic function is normal. Left Atrium Left atrial chamber dimension is mildly enlarged. Right Atrium Right atrial chamber dimension is mildly enlarged. Aortic Valve The aortic valve is trileaflet. There is no aortic valve sclerosis. There is no aortic valve stenosis with a peak velocity of 141 cm/s, mean gradient of 4 mmHg, and aortic valve area of 2.1 cm2. There is no aortic valve regurgitation. Pulmonic Valve The pulmonic valve is normal. There is no pulmonic valve stenosis. There is no pulmonic regurgitation. Mitral Valve The mitral valve has normal leaflets. There is no mitral valve stenosis. There is trace mitral valve regurgitation. Tricuspid Valve The tricuspid valve leaflets are normal. There is no tricuspid valve stenosis. There is mild tricuspid valve regurgitation. Pulmonary hypertension, estimated pulmonary arterial systolic pressure is 48 mmHg and systemic blood pressure of 121 mmHg in systole. Pericardium/Pleural The pericardium appears normal. There is trace to small pericardial effusion with no tamponade. No pleural effusion visualized. Inferior Vena Cava Normal inferior vena cava with >50% collapse upon inspiration consistent with normal right atrial pressure, 3 mmHg. Aorta The aortic measurements are indexed to age and body surface area. The aortic root at the sinus of Valsalva is not well visualized. The prox ascending aorta is not well visualized. Summary 1. Left ventricle size is normal and systolic function is normal. Estimated ejection fraction is 60-65%. There is grade I diastolic dysfunction. 2. Right ventricle chamber size is mildly enlarged and systolic function is normal. Estimated RVSP is 48 mmHg. Moderate HTN. 3. There is trace mitral valve regurgitation. 4. There is mild tricuspid valve regurgitation and trace MR. Mild MAC. 5. The left atrium is mildly enlarged. The right atrium is mildly enlarged. 6. There is trace to small pericardial effusion with no tamponade. Report Signatures Finalized by Rishi Castro on 03/17/2025 07:12 PM
--- NOTE | 2025-03-16 17:43 | ESCONSULT_ITS ---
<Statement entered by Cody Reno MD - 03/17/25 08:10> Patient was seen and examined by me personally. I have reviewed the below documentation by the team resident and agree with its findings. Ms. Alcaraz is a 74-year-old female with no significant past medical history who presented to [facility] emergency department on March 16, 2025 with a chief complaint of progressively generalized weakness. Patient was found to have osteoblastic metastasis including sclerotic foci in T12 area on lumbar x-ray in December 2024, further workup revealed abnormal uterine endometrium, large mass right upper lobe, large right pleural effusion, mediastinal lymphadenopathy, osteoblastic disease of lower dorsal vertebrae, proximal humeral shaft, acromion, right frontal bone and metastatic pulmonary nodules in the past and is established with cancer treatment center Dr. Sevilla. Patient in the ER with symptoms of left leg paralysis and right leg weakness said that she has been feeling progressively weak has left leg weakness difficulty walking reportedly has lost around 30 pounds in the last 6-12 months. Venous Doppler in ED shows extensive bilateral occlusive DVT involving the right common femoral right superficial femoral and superficial greater saphenous vein along with the left common femoral superficial femoral popliteal peroneal and superficial greater saphenous vein. Patient admitted for further management. Chest CTA negative for pulmonary artery emboli. Elevated D-dimer 2480, BNP 59, troponin 0.038. Patient started on heparin gtt., will evaluate in a.m. for possible peripheral angiogram and thrombectomy. Thank you for the consult and allowing to participate in the care of the patient. Cardiology will continue to follow. Case discussed with Attending Physician Dr. Rishi Reno MD Internal Medicine PGY-2 Disclaimer: This note was dictated by speech recognition. Minor errors in training and development assistant may be present due to voice recognition software. HPI Data of Consult Requesting Physician: Jocelyn Oconnor MD Admitting Provider: Jocelyn Oconnor MD Attending Provider: Jocelyn Oconnor MD Primary Care Provider: Luis Carlos Aguayo MD Consult Narrative History of present illness: History of Present Illness: Ms Melba Alcaraz is 74yF, with PMH of lung nodule and osteoblastic metastasis involving thoracic area, presented to the ED on 03/16/2025 for progressivly worsening generalized weakness. On Dec 2024, her lung nodule was incidently found on CXR. Yesterday (03/15) she had symptom of left leg paralysis and right leg weakness. Patient lost 30 lbs since last year. On 02/25/2025, patient was seen by Dr. Sevilla, Oncology, and was found out to have wide spread osteoblastic metastasis. 6.3 x 5.0 x 7.7 central pulm mass right upper lobe severely compressing the right lower lobe bronchus, multiple metastatic pulmonary nodules and solid endometrial mass. Pt recommended to schedule lung nodule biopsy during the visit. Patient complains of lower extremity numbness, left lower leg paralysis, right lower leg weakness. Patient was admitted due to generalized weakness secondary to widespread metastaic disease. Cardiology was consulted on 03/16/2025 for management of extensive bilateral DVT seen on Venous doppler imaging. ED course: Vitals/Labs: Temp 97.9, HR 97, RR 16, BP 122/78, 100%RA. WBC 7.9, Hgb 12.9 Plt 375, D-dimer 2480, Na 139, K 3.8, Cr 0.5, BUN 16, ALP 949. Head CT (03/16/2025): Negative for acute hemorrhage, mass effect or midline shift. Findings most consistent with osseous metastatic disease involving the right frontal bone Shoulder XR (03/16/2025): Findings most consistent with osteoblastic metastatic disease involving the acromion and the proximal humeral shaft as well as lower dorsal vertebral bodies. CT abd/chest (03/16/2025): Markedly abnormal uterine endometrium, Widespread osseous metastatic disease. Chest CTA (03/16/2025): Pulmonary artery hypertension, Negative for pulmonary artery emboli, Large right pleural effusion, Pulmonary mass again noted right lung impinging upon the right main pulmonary artery and right lower lobe pulmonary artery branches, Subcentimeter nodules left lung, Prominent vascular congestion, Diffuse pneumonia right lung Venous Doppler US (03/16/2025): Extensive bilateral occlusive deep vein thrombus -Positive for deep vein thrombus involving the right common femoral right, superficial femoral veins and superficial greater saphenous vein -Positive for thrombus involving the left common femoral, superficial femoral, popliteal, peroneal veins and superficial greater saphenous vein Medical history: As stated above Surgical history: Denies Allergies: NKDA Medications: Denies Family history: Noncontributory Social history: Denies smoking cigarettes or using other illicit drugs. Occasionally drinks wine. Lives at home, independent baseline with walker, then wheelchair, now bed bound. cc:: cc: Jocelyn Oconnor MD Review of Systems Review of Systems Narrative Review of Systems: All 12 systems assessed and the patient denies unless otherwise stated in HPI Exam Vital Signs Temp Pulse Resp BP Pulse Ox O2 Del Method 100.1 F 126 H 30 H 121/86 H 94 L Room Air 03/16/25 16:12 03/16/25 16:12 03/16/25 16:12 03/16/25 16:12 03/16/25 16:12 03/16/25 16:12 Narrative Exam General: No acute distress, well nourished, AAO x3 Eye: PERRL, EOMI, normal conjunctiva, no scleral icterus HENT: Normocephalic, atraumatic, hearing intact to conversation at normal volume, moist oral mucosa Neck: Supple, non-tender, no JVD, no lymphadenopathy Lungs: Non-labored respirations, symmetric chest rise, Clear to auscultate bilaterally, No wheezing, rhonchi, crackles Heart: Peripheral pulses intact bilaterally, Regular Rate and Rhythm. Abdomen: Soft, non-tender, non-distended, no palpable masses Musculoskeletal: No cyanosis or edema, No visible joint swelling, Left lower leg muscle strength 1/5. Right lower leg 2/5 muscle strength. +1 pitting edema BLE, swollen, tenderness on palpation. Skin: Skin is warm, dry, no rashes or lesions. Neuro: Cranial nerves II-XII grossly intact. Sensations intact to light touch. Results Labs 03/17/25 18:00 03/17/25 18:00 Labs: Short CBC 03/16/25 Range/Units 08:30 WBC 7.9 (3.6-11.0) Thou/mm3 Hgb 12.9 (12.0-16.0) g/dL Hct 40.2 (36.0-46.0) % Plt Count 375 (140-440) Thou/mm3 BMP 03/16/25 08:30 Sodium 139 Potassium 3.8 Chloride 101 Carbon Dioxide 27.2 BUN 16 Creatinine 0.5 L Glucose 90 Calcium 9.2 Cardiac Enzymes 03/16/25 Range/Units 08:30 Total Creatine Kinase 54 (34-171) U/L Troponin I 0.038 (0.0-0.045) ng/mL Liver Function 03/16/25 Range/Units 08:30 Total Bilirubin 0.7 (0.3-1.2) mg/dL Direct Bilirubin 0.2 (0.0-0.3) mg/dL AST 68 H (0-34) U/L ALT 12 (10-49) U/L Alkaline Phosphatase 949 H (46-116) U/L Albumin 3.9 (3.4-4.8) gm/dL Urine 03/16/25 Range/Units 08:30 Urine Color Yellow (Lt Yel-Yel) Urine Clarity Clear (Clear/Hazy) Urine pH 5.5 (5.0-7.0) Ur Specific [place] 1.028 (1.001-1.035) Urine Protein Trace (Neg - Trace) Urine Glucose (UA) Negative (Negative) ABG Interpretation ABG results: 03/16/25 08:30 VBG pH 7.42 VBG pCO2 48 VBG pO2 20 VBG Base Excess 6 H Quality Measures Quality Measures VTE prophylaxis Advance care planning discussed with:: patient and other Medications Home Medications and Allergies Home Medications ?Medication ?Instructions ?Recorded ?Confirmed ?Type diclofenac sodium 3 % topical gel 1 applic topical BID 03/16/25 03/16/25 History Allergies Allergy/AdvReac Type Severity Reaction Status Date / Time No Known Allergies Allergy Verified 03/16/25 08:06 Visit Medications Acetaminophen (Acetaminophen 325 Mg Tablet) 650 mg PO Q4HR PRN PRN Reason: PAIN SCALE 1-3 (mild Stop: 04/15/25 16:38 Diclofenac Sodium (Diclofenac 1% Top Gel 100 Gm Tube) 2 gm TOP Q6H PRN PRN Reason: Right shoulder pain Stop: 04/15/25 16:39 Heparin Sodium/Dextrose (Heparin In D5w Ivpb) 25,000 unit in 250 mls @ 10.614 mls/hr IV .[id number] [facility]; Protocol Stop: 03/30/25 15:29 Last Admin: 03/16/25 16:17 Dose: 18 units/kg/hr, 10.614 mls/hr Oxycodone/Acetaminophen (Oxycodone/Apap 5/325 Tablet) 1 tab PO Q6HR PRN PRN Reason: Pain Scale 4-10 (Severe Stop: 03/21/25 16:38 Last Admin: 03/16/25 17:26 Dose: 1 tab Discontinued Medications Heparin Sodium (Porcine) (Heparin Sod Inj 5000 Unit/Ml Vial) 4,700 unit 80 unit/kg (4700 unit) IV X1 ONE; Protocol Stop: 03/16/25 15:19 Last Admin: 03/16/25 16:16 Dose: 4,700 unit Lactated Ringer's (Lactated Ringers) 1,000 mls @ 500 mls/hr IV .Q2H ONE Stop: 03/16/25 09:56 Last Infusion: 03/16/25 11:09 Dose: Infused Azithromycin 500 mg/ Sodium (Chloride) 250 mls @ 250 mls/hr IV X1 ONE Stop: 03/16/25 14:56 Last Infusion: 03/16/25 17:08 Dose: Infused Ceftriaxone Sodium/Dextrose (Rocephin/D5w 1gm Iv Premix) 1 gm in 50 mls @ 100 mls/hr IV X1 ONE Stop: 03/16/25 14:26 Last Infusion: 03/16/25 14:46 Dose: Infused Ondansetron HCl (Ondansetron Inj 2 Mg/Ml Inj 2 Ml) 4 mg IVP X1 ONE; Protocol Stop: 03/16/25 07:58 Last Admin: 03/16/25 09:09 Dose: 4 mg Assessment & Plan Plan Ms Reilly Siterhal is 74yF, with PMH of lung nodule and osteoblastic metastasis involving thoracic area, presented to the ED on 03/16/2025 for progressivly worsening generalized weakness. On Dec 2024, her lung nodule was incidently found on CXR. Yesterday (03/15) she had symptom of left leg paralysis and right leg weakness. Patient lost 30 lbs since last year. On 02/25/2025, patient was seen by Dr. Sevilla, Oncology, and was found out to have wide spread osteoblastic metastasis. 6.3 x 5.0 x 7.7 central pulm mass right upper lobe severely compressing the right lower lobe bronchus, multiple metastatic pulmonary nodules and solid endometrial mass. Pt recommended to schedule lung nodule biopsy during the visit. Patient complains of lower extremity numbness, left lower leg paralysis, right lower leg weakness. Patient was admitted due to generalized weakness secondary to widespread metastaic disease. Cardiology was consulted on 03/16/2025 for management of extensive bilateral DVT seen on Venous doppler imaging. #Extensive Bilateral DVT -Chest CTA (03/16/2025): Pulmonary artery hypertension, Negative for pulmonary artery emboli, Large right pleural effusion, Pulmonary mass again noted right lung impinging upon the right main pulmonary artery and right lower lobe pulmonary artery branches, Subcentimeter nodules left lung, Prominent vascular congestion, Diffuse pneumonia right lung -Venous Doppler US (03/16/2025): Extensive bilateral occlusive deep vein thrombus -Positive for deep vein thrombus involving the right common femoral right, superficial femoral veins and superficial greater saphenous vein -Positive for thrombus involving the left common femoral, superficial femoral, popliteal, peroneal veins and superficial greater saphenous vein -On examination, Bilateral lower extremity swelling, tenderness on palpation. No signficant redness noted -Imaging showed metastic cancer in bones, lungs, and in endometrium. -No recent surgery, Immobility, , hormonal therapy, or trauma -Elevated D dimer of 2480. BNP: 59, troponin 0.038. -HAS BLEED score of 1 (Low risk of major bleeding) Plan: -Continue Heparin drip and eventually transition to Eliquis for anticoagulation - Patient not a suitable candidate for thrombectomy and given her stage IV cancer with multiple metastasis, cachexia as well as overall poor prognosis. Also patient does not have any significant leg swelling or any signs of phlegmasia cerulea dolens and would only recommend medical management for now. #Sinus Tachycardia with PVCs -EKG showing sinus tachycardis with multiple PVCs. -Likely due to pleural effusion from her metastatic lung cancer -Treat underlying cause -Mg>2, K>4 #Metastatic lung cancer, pulmonary nodules #Osteoblastic disease of acromion #Osteoblastic disease of proximal humeral shaft #Osteoblastic disease of lower dorsal vertebral bodies #Osseous metastatic disease, right frontal bone #Large mass, right upper lobe #Mediastinal lymphadenopathy #Large right plerual effusion, likely malignant #Abnormal uterine endometrium -Management per Primary Hospitalist team Thank you for allowing us to participate in the care of Ms Melba Morelrhal. Cardiology will continue to follow. Assessment and plan discussed with my attending physician Dr. Castro and Dr. Reno (PGY-2) Dr. Guevara (PGY-1) - Internal medicine resident Attending Provider Attestation/Addendum I have personally seen and examined the patient separately on the above date of service and discussed the plan of care with the resident. I reviewed the resident Dr. Aristeo Guevara / Cody Reno consultation progress note and agree with the resident findings and plan in the note above and have also edited the documentation to reflect my findings and plan. Rishi Castro M.D. Interventional Cardiology
--- NOTE | 2025-03-16 17:56 | PC.NURSE ---
THIS RN W/BENCH LOOM WEAVER TOOK PT TO FLOOR CONNECTED TO TELE, RN AND BENCH LOOM WEAVER FROM FLOOR AT BEDSIDE AND ASSUMED CARE. ANDREW HINOJOSA UPDATED THAT THIS RN MEDICATED PT FOR PAIN PRIOR TO TRANSFERRING UP TO FLOOR.
[2025-03-16] MEDS: DICLOFENAC 1% TOP GEL 100 GM TUBE TOP (18:18)
[2025-03-16 21:06] LABS: CA 125 106.0 U/mL (<30.2); CA 15-3 80.2 U/mL (<32.4)
[2025-03-16 21:29] LABS: Carcinoembryonic Antigen 1634.0 ng/mL (0.0-5.0)
[2025-03-16] MEDS: PIPER/TAZO INJ 4.5 GM in SODIUM CHLORIDE 0.9% (POP) 100 ML IV (21:40)
--- NOTE | 2025-03-16 23:30 | PC.NURSE ---
Called hospitalist, spoke to Dr. Sweeney regarding cardiac rhythm. Pt has been sinus rhythm with frequent PVS and now pt having intermittent runs of trigeminy. Pt alert/oriented x3, no distress noted. No new orders received at this time.
--- NOTE | 2025-03-16 23:45 | PC.NURSE ---
Called hospitalist, spoke to Dr. Sweeney regarding cardiac rhythm. Pt has been sinus rhythm with frequent PVCs and now pt having intermittent runs of trigeminy. Pt alert/oriented x3, no distress noted. 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 No new orders received at this time.
[2025-03-17] VITALS (13 sets, daily range): BP systolic 83–103; BP diastolic 44–65; PULSE 73–770; RESP 16–28; TEMP 35.9–36.7; O2SAT 84–96; BMI 25.0
[2025-03-17 00:14] LABS: Partial Thromboplastin Time 56.1 Seconds (22.0-36.0)
[2025-03-17] MEDS: MORPHINE SULF INJ 4 MG/ML VIAL 2 MG IVP ×2 (00:26→08:36)
[2025-03-17] MEDS: DICLOFENAC 1% TOP GEL 100 GM TUBE TOP ×2 (01:06→10:58)
--- NOTE | 2025-03-17 02:27 | PC.RT ---
pt refuses sputum induction and unable to produce sputum
[2025-03-17] MEDS: PIPER/TAZO INJ 4.5 GM in SODIUM CHLORIDE 0.9% (POP) 100 ML IV ×3 (05:26→22:01)
[2025-03-17 06:23] LABS: Basophils # (Auto) 0.1 Thou/mm3 (0.0-0.2); Basophils % (Auto) 1 % (0-2.5); Eosinophils # (Auto) 0.0 Thou/mm3 (0.0-0.5); Eosinophils % (Auto) 0 % (0-10); Hematocrit 33.6 % (36.0-46.0); Hemoglobin 10.9 g/dL (12.0-16.0); Immature Granulocytes Auto 0.05 Thou/mm3 (0.00-0.00); Lymphocytes # (Auto) 0.3 Thou/mm3 (1.0-4.8); Lymphocytes % (Auto) 2 % (10-50); Mean Corpuscular HGB Conc 32.4 g/dl (31.0-37.0); Mean Corpuscular Hemoglobin 27.3 pg (25.0-35.0); Mean Corpuscular Volume 84 fL (80-100); Monocytes # (Auto) 0.6 Thou/mm3 (0.0-0.8); Monocytes % (Auto) 4 % (0-12); Neutrophils # (Auto) 12.5 Thou/mm3 (1.8-7.7); Neutrophils % (Auto) 93 % (37-80); Nucleated Red Blood Cell # 0.00 Thou/mm3 (0.00-0.00); Nucleated Red Blood Cell % 0 /100 WBC (0); Platelet Count 315 Thou/mm3 (140-440); RDW Standard Deviation 53.7 fL (36.4-46.3); Red Blood Count 3.99 Miln/mm3 (4.00-5.20); White Blood Count 13.4 Thou/mm3 (3.6-11.0)
--- NOTE | 2025-03-17 06:34 | PC.NURSE ---
Dr. Palomo made aware had no urine output throughout the night, bladder scan done- 72ml in bladder. No new order received at this time.
[2025-03-17 06:42] LABS: Alanine Aminotransferase 10 U/L (10-49); Albumin, Serum 3.1 gm/dL (3.4-4.8); Albumin/Globulin Ratio 1.1 (1.2-2.2); Alkaline Phosphatase 898 U/L (46-116); Anion Gap 9 (7-16); Aspartate Amino Transferase 66 U/L (0-34); BUN/Creatinine Ratio 40 Ratio (12-20); Bilirubin,Total 0.7 mg/dL (0.3-1.2); Blood Urea Nitrogen 24 mg/dL (9-23); Calcium 8.4 mg/dL (8.3-10.6); Calcium (Corrected) 9.1 mg/dL (8.5-10.1); Carbon Dioxide 27.0 mMol/L (20.0-31.0); Chloride 101 mMol/L (98-107); Creatinine (Component) 0.6 mg/dL (0.6-1.3); Estimated Creatinine Clearance 70.5 mL/min (>60); Globulin 2.7 gm/dL (2.3-3.5); Glucose 106 mg/dL (74-106); LDH (Lactate Dehydrogenase) 572 U/L (120-246); Magnesium 2.1 mg/dL (1.6-2.6); Osmolality,Calculated 277 (275-295); Phosphorous 3.5 mg/dL (2.4-5.1); Potassium 4.7 mMol/L (3.4-5.1); Sodium 137 mMol/L (136-145); Total Protein 5.8 gm/dL (5.7-8.2); eGFR > 60 See Note
[2025-03-17 06:50] LABS: INR 1.2 (0.9-1.3); Partial Thromboplastin Time 54.5 Seconds (22.0-36.0); Prothrombin Time 12.6 Seconds (9.0-12.2)
--- NOTE | 2025-03-17 07:43 | PC.RT ---
Spoke with md regarding pt refusal of sputum induction, md aware pt has refused. Sputum induction on hold until md able to reassess pt.
[2025-03-17] MEDS: DOXYCYCLINE INJ 100 MG in SODIUM CHLORIDE 0.9% (POP) 100 ML IV ×2 (08:24→20:08)
--- NOTE | 2025-03-17 08:35 | ESCONSULT_ITS ---
HPI Data of Consult Requesting Physician: Jocelyn Oconnor MD Primary Care Provider: Luis Carlos Aguayo MD Consult Narrative Reason for consult: Widespread malignancy involving lung bones and possibly SURFACE WATER TECHNICIAN and COMMUNITY RELATIONS DIRECTOR. History of present illness: Patient unfortunate 74-year-old lady initially seen at [facility] for suspected malignancy involving lung and bone. Initial lumbar x-ray 7024 suggested mets in both lumbar and thoracic area and CT chest abdomen pelvis 01/23/2025 revealed large mass right upper lobe severely compressing right lower lobe bronchus. Multiple metastatic pulmonary nodules with right malignant pleural effusion right axillary adenopathy and extensive mediastinal adenopathy. Bone scan 01/27/2025 revealed widespread mets. When admitted with increasing weakness, CT 03/16/2025 revealed a large lung mass impinging the right main pulmonary artery with multiple subcentimeter nodules elsewhere negative for pulmonary artery emboli and large right pleural effusion. There was also diffuse pneumonia right lung. There was also markedly abnormal uterine endometrium. Venous Doppler showed extensive bilateral occlusive deep venous thrombosis. Tumor markers CEA 1634 CA 15-3 80 and CA125 106. Noted to also have tachycardia with frequent PVCs being followed by cardiology. 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 Past Medical History Comments PMH COMMENT: History of chickenpox mom says child no recent major illnesses Meds Home Medications and Allergies Home Medications ?Medication ?Instructions ?Recorded ?Confirmed ?Type diclofenac sodium 3 % topical gel 1 applic topical BID 03/16/25 03/16/25 History Allergies Allergy/AdvReac Type Severity Reaction Status Date / Time No Known Allergies Allergy Verified 03/16/25 08:06 Exam Vital Signs Temp Pulse Resp BP Pulse Ox O2 Del Method O2 Flow Rate 97.2 F 107 H 16 103/62 94 L Room Air 4 03/17/25 08:00 03/17/25 08:00 03/17/25 08:00 03/17/25 08:00 03/17/25 08:00 03/17/25 08:00 03/17/25 07:52 Narrative Exam Appears alert with lower extremity weakness and upper extremity weakness right greater than left Results Labs 03/17/25 05:48 03/17/25 05:48 Labs: Short CBC 03/16/25 03/17/25 Range/Units 08:30 05:48 WBC 7.9 13.4 H D (3.6-11.0) Thou/mm3 Hgb 12.9 10.9 L D (12.0-16.0) g/dL Hct 40.2 33.6 L (36.0-46.0) % Plt Count 375 315 D (140-440) Thou/mm3 BMP 03/16/25 03/17/25 08:30 05:48 Sodium 139 137 Potassium 3.8 4.7 D Chloride 101 101 Carbon Dioxide 27.2 27.0 BUN 16 24 H Creatinine 0.5 L 0.6 Glucose 90 106 Calcium 9.2 8.4 Cardiac Enzymes 03/16/25 Range/Units 08:30 Total Creatine Kinase 54 (34-171) U/L Troponin I 0.038 (0.0-0.045) ng/mL Liver Function 03/16/25 03/17/25 Range/Units 08:30 05:48 Total Bilirubin 0.7 0.7 (0.3-1.2) mg/dL Direct Bilirubin 0.2 (0.0-0.3) mg/dL AST 68 H 66 H (0-34) U/L ALT 12 10 (10-49) U/L Alkaline Phosphatase 949 H 898 H D (46-116) U/L Albumin 3.9 3.1 L D (3.4-4.8) gm/dL Urine 03/16/25 Range/Units 08:30 Urine Color Yellow (Lt Yel-Yel) Urine Clarity Clear (Clear/Hazy) Urine pH 5.5 (5.0-7.0) Ur Specific [place] 1.028 (1.001-1.035) Urine Protein Trace (Neg - Trace) Urine Glucose (UA) Negative (Negative) ABG Interpretation ABG results: 03/16/25 08:30 VBG pH 7.42 VBG pCO2 48 VBG pO2 20 VBG Base Excess 6 H Assessment and Plan Additional Assessment & Plan Additional Plan: 1. Likely widespread malignancy involving long bones, possibly involving SURFACE WATER TECHNICIAN and COMMUNITY RELATIONS DIRECTOR. 2. CEA considerably elevated with moderate elevation of CA 15?3 CA125. 3. Recommend MRI of brain with contrast and pelvic ultrasound. 4. Being followed by cardiology for DVT sinus tachycardia with PVCs. 5. Thoracentesis with study of pleural fluid for cytology pending. 6. Spoke with patient and about her guarded prognosis.
--- NOTE | 2025-03-17 09:51 | ESPR_ITS ---
<Statement entered by Jocelyn Oconnor MD - 03/21/25 08:35> I reviewed above note and agree with findings and plans. I have also personally examined the patient with medicine team and went over assessment and plan with medical team including manager international and resident physician. <Statement entered by Leonard Stoner MD - 03/17/25 21:41> In summary: a 74-year-old female with a significant oncological history who presented to the Emergency Department on March 16, 2025, complaining of generalized weakness and a 30-pound weight loss over the past year. Her clinical picture has acutely worsened with the new onset of left lower extremity paralysis and right lower extremity weakness. Imaging and diagnostic workup revealed occlusive LE DVT, extensive, widespread metastatic disease involving the lungs large right upper lung mass, mediastinal lymphadenopathy, a large right pleural effusion, and diffuse osteoblastic and lytic lesions throughout the cervical, thoracic, and lumbar spine, as well as the mandible and frontal bone. She is currently experiencing severe spinal stenosis and pathologic compression fractures at T2 and T11, likely explaining her neurological deficits. Tumor markers are significantly elevated, including a CEA of 1634.0 and a CA 125 of 106. Oncology has been consulted and notes a guarded prognosis; current plans include an MRI of the brain to r/o brain mets and thoracic spine to confirm cord compression, a pelvic ultrasound to investigate endometrial thickening, and a thoracentesis for cytology. Pain is currently managed. In addition to her malignancy, she was diagnosed with extensive bilateral DVT involving the common femoral, superficial femoral, and saphenous veins, among others. She was started on a Heparin drip per protocol, and Cardiology is evaluating her for a potential thrombectomy. Cardiovascular monitoring also noted sinus tachycardia with frequent PVCs, likely secondary to hypoxia from her pleural effusion or electrolyte imbalances; management includes aggressive electrolyte repletion and treating the underlying respiratory distress. GOALS OF CARE DISCUSSION: Multiple comprehensive Goals of Care discussions were held throughout the day regarding her prognosis and the severity of her metastatic disease. She is currently Alert and Oriented x4 with full decision-making capacity and has expressed a desire to proceed with active cancer treatment. She has been informed that, given her poor overall health and advanced disease, her oncologist does not recommend aggressive management and is not keen on obtaining a biopsy at this time given her poor health status. Furthermore, she is currently unable to void or have bowel movements, likely secondary to spinal cord compression. While she was offered a transfer to a higher level of care for potential neurosurgical intervention, she has requested to wait until tomorrow to make a final decision. I clarified that a lateral transfer for oncology or DVT management is unlikely as these services are available at our facility. Regarding her immediate medical needs, we discussed the necessity of an MRI Brain to rule out intracranial metastases, particularly as she is on a Heparin drip which carries significant risks of intracranial hemorrhage or worsening of existing bleeds. Despite these risks being explained, she and her have deferred the imaging until tomorrow due to her fatigue and want to continue treating DVT with heparin drip. Similarly, the ICU team evaluated her for an urgent thoracentesis to address her large pleural effusion and worsening respiratory status. The risks of deferred treatment, including respiratory failure, were explained; however, she has opted to hold the procedure until tomorrow. Throughout these discussions, she has consistently demonstrated full capacity, accurately relaying the risks and benefits of her decisions. Other options, including palliative care and symptomatic management, were presented as alternatives. Her remains at the bedside and is in full agreement with her current plan to defer interventions until the following day. RAPID RESPONSE: During rounds, the nursing staff reported a significant increase in her oxygen demand and worsening respiratory effort. On evaluation, she was found in acute respiratory distress, appearing dyspneic with a respiratory rate in the upper 30s and oxygen saturations in the mid-80s despite being on maximum nasal cannula flow. Physical exam revealed substernal retractions, use of accessory muscles, and diffuse crackles. She was escalated to a HFNC, but her saturations remained suboptimal in the 80s. An ABG confirmed acute respiratory acidosis with a pH of 7.15 and pCO2 of 81. While pulmonary embolism was considered, she was deemed too unstable for a CTA, and BiPAP was deferred due to the risk of hemodynamic collapse in the setting of a potential PE. Given her rapid decline, an emergent Goals of Care discussion was held at the bedside with the patient, nursing, and respiratory therapy. Despite her distress, she remained A&Ox4 with full decision-making capacity. She elected to undergo an emergent thoracentesis but explicitly clarified her code status: she wishes to remain DNR and requested Comfort Measures Only should her condition continue to worsen. Her , Viral, was notified by phone; he expressed confidence in the medical team's judgment and supported her decisions.An emergent bedside thoracentesis was performed by the ED physician, successfully removing 1L of serous fluid. Post-procedure, she reported symptomatic improvement and is currently maintaining saturations in the low 90s on HFNC. A post-procedure CXR revealed small right apical and inferior pneumothoraces, which will require close monitoring. Laboratory studies, including CBC, CMP, lactic acid, and troponin, remained stable. She continues on a Heparin drip for her extensive DVTs, though her clinical stability remains tenuous. We will continue with medical management per her wishes and will attempt MRI brain tomorrow and revisit [facility] discussion vs. transfer to a tertiary center for neuroligcal interventions. I?ve reviewed the note and agree with this assessment and plan, with the exceptions outlined above. I personally went over the labs, imaging, home medications, and prior records, and examined the patient. The case was also reviewed with the attending physician. Please note: this document was transcribed using voice recognition technology; minor inaccuracies may be present. Leonard Stoner DO PGY II Documentation for date of: 03/17/25 Subjective Subjective Interval history: Mrs. Alcaraz is a 74 years old female with history of lung nodule and osteoblastic metastasis involving thoracic area presents to the ED for generalized weakness on 03/16/25. Per patient, she does not regularly follow up with a doctor. The last time when she saw one was reported to be in Dec, 2024 at [facility] for back pain, where they found an lung nodule on her chest XR. Since then, the patient had became progressively weak. On 03/15/25 (the day prior to admission), the patient's can no longer assist her with walking due to left leg paralysis and right leg weakness, which prompted them to seek care in the ER. Patient stated that since last , she started on a diet, and had lost 30 pounds, but did not think her weight loss was due to cancer. She denies night sweat, cough, nausea, chest pain, shortness of breathe, but does endorse malaise and generalized weakness that had became worse recently. Upon chart review, it was noted patient had seen Dr. Sevilla (oncology), and was recommended and scheduled for an upcoming lung nodule biopsy. Per Dr. Sevilla's note, patient has right upper lobe pulmonary mass, multiple metastatic pulmonary nodules, extensive mediastinal lymadenopathym widespread osseous metastatic disease, and solid endometrial mass. She was admitted for generalized weakness likely secondary to widespread metatstatic disease. 03/17/25: NAOE. Patient reports feeling tired, and wants to defer thoracentesis to a later time. I stressed the importance and urgency for this procedure as the pleural fluid is likely compressing patient's right lung and pulmonary artery. Patient understands. She is currently on 93% with 4L NC. Her Hgb had decreased from 12.9 to 10.9 this AM, rpt Hgb 10.6. Will continue to monitor closely since patient is on heparin gtt for B/L LE DVTs, may consider thrombectomy pending cardiolgoy recs. Her tumor markers returned positive for CEA, CA 153 and CA 125, pending CA 199. Given patient's recent onset of LLE paralysis and RLE weakness, CT thoracic, lumbar, and cervical spine ordered, revealed widespread metastatic disease. Oncology consulted, suggested guarded prognosis. Exam Vital Signs Temp Pulse Resp BP Pulse Ox O2 Del Method O2 Flow Rate 97.2 F 107 H 16 103/62 94 L Room Air 4 03/17/25 08:00 03/17/25 08:00 03/17/25 08:00 03/17/25 08:00 03/17/25 08:00 03/17/25 08:00 03/17/25 07:52 Narrative Exam General: Alert, oriented, in no acute distress. Frail, tire appearing. HEENT: Normocephalic, atraumatic. Extraocular movements intact. Neck: Supple, no JVD Cardiovascular: Regular rate and rhythm. No murmurs, rubs, or gallops. Respiratory: Clear to auscultation bilaterally. No wheezes, rales, or rhonchi. Normal respiratory effort. Abdomen: Soft, nontender, nondistended. No masses or organomegaly. Musculoskeletal: No joint swelling, tenderness, or deformities. Loss of muscle tone. Skin: Warm, dry, intact. No rashes or lesions. Neurological: Alert, oriented. Cranial nerves II-XII intact. LLE paralysis. RLE weakness. Psychiatric: Calm, cooperative, appropriate mood and affect. Objective Labs 03/17/25 18:00 03/17/25 18:00 Labs: Laboratory Results - last 24 hr 03/16/25 03/16/25 03/17/25 08:30 23:26 05:48 WBC 13.4 H D RBC 3.99 L Hgb 10.9 L D Hct 33.6 L MCV 84 MCH 27.3 MCHC 32.4 RDW Std Deviation 53.7 H Plt Count 315 D Neut % (Auto) 93 H Lymph % (Auto) 2 L Forest % (Auto) 4 Eos % (Auto) 0 Baso % (Auto) 1 Neut # (Auto) 12.5 H Lymph # (Auto) 0.3 L [place] # (Auto) 0.6 Eos # (Auto) 0.0 Baso # (Auto) 0.1 Immature Gran # (Auto) 0.05 H Absolute Nucleated RBC 0.00 Immature Gran % 0 Nucleated RBC % 0 PT 12.1 12.6 H INR 1.1 1.2 APTT 25.4 56.1 H D 54.5 H Sodium 139 137 Potassium 3.8 4.7 D Chloride 101 101 Carbon Dioxide 27.2 27.0 Anion Gap 11 9 BUN 16 24 H Creatinine 0.5 L 0.6 Estim Creat Clear Calc 83.9 70.5 eGFR > 60 > 60 BUN/Creatinine Ratio 32 H 40 H Glucose [address] Glu mg/dL 103 Hemoglobin A1c 5.2 Calculated Osmolality 278 277 Calcium 9.2 8.4 Corrected Calcium 9.3 9.1 Phosphorus 3.5 Magnesium 2.2 2.1 Total Bilirubin 0.7 0.7 Direct Bilirubin 0.2 AST 68 H 66 H ALT 12 10 Alkaline Phosphatase 949 H 898 H D Lactate Dehydrogenase 572 H Total Creatine Kinase 54 Troponin I 0.038 C-Reactive Prot, Quant 2.7 H B-Natriuretic Peptide 59 Total Protein 7.2 5.8 Albumin 3.9 3.1 L D Globulin 3.3 2.7 Albumin/Globulin Ratio 1.2 1.1 L Lipase 27 Carcinoembryonic Ag 1634.0 H CA 15-3 Antigen 80.2 H CA 125 Antigen 106.0 H Procalcitonin 0.05 TSH 1.34 ABG Interpretation ABG results: 03/16/25 08:30 VBG pH 7.42 VBG pCO2 48 VBG pO2 20 VBG Base Excess 6 H Quality Measures Quality Measures VTE prophylaxis Advance care planning discussed with:: patient Assessment & Plan Assessment Current Active Medications: Generic Name Dose Route Start Last Admin Trade Name Zion PRN Reason Stop Dose Admin Acetaminophen 650 mg 03/16/25 18:46 Acetaminophen 325 Mg Tablet PO 04/15/25 16:38 Q4HR PRN Fever or Pain 1-3 Diclofenac Sodium 2 gm 03/16/25 16:40 03/17/25 01:06 Diclofenac 1% Top Gel 100 Gm Tube TOP 04/15/25 16:39 2 gm Q6H PRN Administration Right shoulder pain Hydromorphone HCl 1 mg 03/16/25 18:46 Hydromorphone Inj 2 Mg/Ml Vial IVP 03/21/25 18:45 Q4HR PRN PAIN SCALE 7-10 Heparin Sodium/Dextrose 25,000 unit in 250 mls @ 10.614 mls/hr 03/16/25 15:30 03/17/25 06:51 Heparin In D5w Ivpb IV 03/30/25 15:29 18 units/kg/hr .[id number] RUFINO 10.614 mls/hr Protocol Titration 18 UNITS/KG/HR Doxycycline Hyclate 100 mg/ 100 mls @ 100 mls/hr 03/17/25 09:00 03/17/25 08:24 Sodium Chloride IV 03/24/25 08:59 100 mls/hr BID RUFINO Administration Piperacillin Sod/Tazobactam 100 mls @ 200 mls/hr 03/16/25 22:00 03/17/25 05:26 Sod 4.5 gm/ Sodium Chloride IV 03/23/25 21:59 200 mls/hr Q8HR RUFINO Administration Protocol Morphine Sulfate 2 mg 03/16/25 18:46 03/17/25 08:36 Morphine Sulf Inj 4 Mg/Ml Vial IVP 03/21/25 18:45 2 mg Q4HR PRN Administration PAIN SCALE 4-6 Plan Mrs. Alcaraz is a 74 years old female with history of lung nodule and osteoblastic metastasis involving thoracic area presents to the ED for generalized weakness on 03/16/25. She had 30 pounds weight loss in the past year. She was found to have osteoblastic metastasis disease to thoracic spine, endometrium thickening, and lung nodules. She was admitted for generalized weakness secondary to metastatic disease. #Bilateral DVT #Right common femoral DVT #Right superficial femoral DVT #Right superficial saphenous DVT #Left common femoral DVT #Left superficial femoral DVT #Left popliteal DVT #Left peroneal DVT #Left superficial greater saphenous DVT In the ED, found to have elevated d-dimer and swollen B/L LE swelling. - Heparin drip per DVT protocol. - Cardiology consulted, appreciate recs --> will evaluate for possible thrombectomy. #Metastatic lung cancer, pulmonary nodules #Osteoblastic disease of acromion #Osteoblastic disease of proximal humeral shaft #Osteoblastic disease of lower dorsal vertebral bodies #Osseous metastatic disease, right frontal bone #Metastatic disease of right mandible #Metastatic disease of cervical vertebra #Metastatic disease of thoracic vertebra #Pathologic compression fractures T11, T2 #Severe spinal stenosis at the T2 level #Metastatic disease of lumbar vertebra #Large mass, right upper lobe #Mediastinal lymphadenopathy #Large right plerual effusion, likely malignant #Abnormal uterine endometrium Found to have osteoblastic metastases initiallt on 01/10/25 due to back pain. Images done in the ED revealed above findings. Patient also reports new onset LLE paralysis and RLE weakness. - Oncology consulted, appreciate recs --> Guarded prognosis, recs thoracentesis for cytology study, MRI brain w/ contrast, and pelvic US. - CA 125 : 106 - CA 199 : Pending - CA 153: 80.2 - CEA : 1634.0 - Plan for US thoracentesis with fluid pathology - MMPR (Tylenol, Diclofenac topical), may consider gabapentin. - CT Cerval spine : extremely widespread major metastatic disease involving the mandible on the right side, and all of the cervical vertebra below the level of C3. - CT thoracic spine : Widespread osteolytic osteoblastic metastatic disease. Pathologic compression fractures T11, T2 Severe spinal stenosis at the T2 level --> recs MRI throacic spine post contrast to confirm spinal cord compression at T2. - CT lumbar spine : There is extremely extensive and extremely widespread metastatic disease in all visible bones, predominantly osteoblastic, with numerous lytic lesions as well. #Sinus tachycardia with frequent PVCs As evident in EKG done in ED. - treat underlying cause, likely due to right pleural effusion/hypoxia - Replete electrolyte with goal of K >4, Mg > 2. Health maintenance Dispo: Thoracentesis, oncology recs. DVT prophylaxis: HEPARIN gtt GI prophylaxis: N/A Antibiotics: N/A Bowel Regimen: N/A Diet: Cardiac diet, NPO after midnight Lines: Peripheral IV Code status: DNR Case discussed with my senior resident Dr. Stoner Case discussed with my attending Dr. Anastasia Olivo, DO PGY 1
--- NOTE | 2025-03-17 09:52 | ESPR_ITS ---
Documentation for date of: 03/17/25 Subjective Subjective Interval history: Ms Reilly Siterlet is 74yF, with PMH of lung nodule and osteoblastic metastasis involving thoracic area, presented to the ED on 03/16/2025 for progressivly worsening generalized weakness. On Dec 2024, her lung nodule was incidently found on CXR. Yesterday (03/15) she had symptom of left leg paralysis and right leg weakness. Patient lost 30 lbs since last year. On 02/25/2025, patient was seen by Dr. Sevilla, Oncology, and was found out to have wide spread osteoblastic metastasis. 6.3 x 5.0 x 7.7 central pulm mass right upper lobe severely compressing the right lower lobe bronchus, multiple metastatic pulmonary nodules and solid endometrial mass. Pt recommended to schedule lung nodule biopsy during the visit. Patient complains of lower extremity numbness, left lower leg paralysis, right lower leg weakness. Patient was admitted due to generalized weakness secondary to widespread metastaic disease. Cardiology was consulted on 03/16/2025 for management of extensive bilateral DVT seen on Venous doppler imaging. ED course: Vitals/Labs: Temp 97.9, HR 97, RR 16, BP 122/78, 100%RA. WBC 7.9, Hgb 12.9 Plt 375, D-dimer 2480, Na 139, K 3.8, Cr 0.5, BUN 16, ALP 949. Head CT (03/16/2025): Negative for acute hemorrhage, mass effect or midline shift. Findings most consistent with osseous metastatic disease involving the right frontal bone Shoulder XR (03/16/2025): Findings most consistent with osteoblastic metastatic disease involving the acromion and the proximal humeral shaft as well as lower dorsal vertebral bodies. CT abd/chest (03/16/2025): Markedly abnormal uterine endometrium, Widespread osseous metastatic disease. Chest CTA (03/16/2025): Pulmonary artery hypertension, Negative for pulmonary artery emboli, Large right pleural effusion, Pulmonary mass again noted right lung impinging upon the right main pulmonary artery and right lower lobe pulmonary artery branches, Subcentimeter nodules left lung, Prominent vascular congestion, Diffuse pneumonia right lung Venous Doppler US (03/16/2025): Extensive bilateral occlusive deep vein thrombus -Positive for deep vein thrombus involving the right common femoral right, superficial femoral veins and superficial greater saphenous vein -Positive for thrombus involving the left common femoral, superficial femoral, popliteal, peroneal veins and superficial greater saphenous vein Medical history: As stated above Surgical history: Denies Allergies: NKDA Medications: Denies Family history: Noncontributory Social history: Denies smoking cigarettes or using other illicit drugs. Occasionally drinks wine. Lives at home, independent baseline with walker, then wheelchair, now bed bound. 03/17/2025: Labs reviewed and patient examined at the bedside. Rapid response called due to respiratory distress and hypoxia due to worsening pleural effusion. Patient received thoracentesis for large right pleural effusion draining 1.4L. On admission, patient was found out to have bilateral DVT. After clinical evaluation, thrombectomy is not recommended as she does not exhibit significant swelling, erythema, severe pain or other findings suggestive of limb compromise that would warrant an interventional approach. Continue with the heparin drip for now. Will continue to monitor. Exam Vital Signs Temp Pulse Resp BP Pulse Ox O2 Del Method O2 Flow Rate 97.2 F 107 H 16 103/62 94 L Room Air 4 03/17/25 08:00 03/17/25 08:00 03/17/25 08:00 03/17/25 08:00 03/17/25 08:00 03/17/25 08:00 03/17/25 07:52 Narrative Exam General: No acute distress, well nourished, AAO x3 Eye: PERRL, EOMI, normal conjunctiva, no scleral icterus HENT: Normocephalic, atraumatic, hearing intact to conversation at normal volume, moist oral mucosa Neck: Supple, non-tender, no JVD, no lymphadenopathy Lungs: Non-labored respirations, symmetric chest rise, Clear to auscultate bilaterally, No wheezing, rhonchi, crackles Heart: Peripheral pulses intact bilaterally, Regular Rate and Rhythm. Abdomen: Soft, non-tender, non-distended, no palpable masses Musculoskeletal: No cyanosis or edema, No visible joint swelling, Left lower leg muscle strength 1/5. Right lower leg 1/5 muscle strength. trace edema BLE, non- tenderness on palpation. Skin: Skin is warm, dry, no rashes or lesions. Neuro: Cranial nerves II-XII grossly intact. Sensations intact to light touch. Objective Labs 03/17/25 18:00 03/17/25 18:00 Labs: Laboratory Results - last 24 hr 03/16/25 03/16/25 03/17/25 08:30 23:26 05:48 WBC 13.4 H D RBC 3.99 L Hgb 10.9 L D Hct 33.6 L MCV 84 MCH 27.3 MCHC 32.4 RDW Std Deviation 53.7 H Plt Count 315 D Neut % (Auto) 93 H Lymph % (Auto) 2 L [place] % (Auto) 4 Eos % (Auto) 0 Baso % (Auto) 1 Neut # (Auto) 12.5 H Lymph # (Auto) 0.3 L [place] # (Auto) 0.6 Eos # (Auto) 0.0 Baso # (Auto) 0.1 Immature Gran # (Auto) 0.05 H Absolute Nucleated RBC 0.00 Immature Gran % 0 Nucleated RBC % 0 PT 12.1 12.6 H INR 1.1 1.2 APTT 25.4 56.1 H D 54.5 H Sodium 139 137 Potassium 3.8 4.7 D Chloride 101 101 Carbon Dioxide 27.2 27.0 Anion Gap 11 9 BUN 16 24 H Creatinine 0.5 L 0.6 Estim Creat Clear Calc 83.9 70.5 eGFR > 60 > 60 BUN/Creatinine Ratio 32 H 40 H Glucose [address] Glu mg/dL 103 Hemoglobin A1c 5.2 Calculated Osmolality 278 277 Calcium 9.2 8.4 Corrected Calcium 9.3 9.1 Phosphorus 3.5 Magnesium 2.2 2.1 Total Bilirubin 0.7 0.7 Direct Bilirubin 0.2 AST 68 H 66 H ALT 12 10 Alkaline Phosphatase 949 H 898 H D Lactate Dehydrogenase 572 H Total Creatine Kinase 54 Troponin I 0.038 C-Reactive Prot, Quant 2.7 H B-Natriuretic Peptide 59 Total Protein 7.2 5.8 Albumin 3.9 3.1 L D Globulin 3.3 2.7 Albumin/Globulin Ratio 1.2 1.1 L Lipase 27 Carcinoembryonic Ag 1634.0 H CA 15-3 Antigen 80.2 H CA 125 Antigen 106.0 H Procalcitonin 0.05 TSH 1.34 ABG Interpretation ABG results: 03/16/25 08:30 VBG pH 7.42 VBG pCO2 48 VBG pO2 20 VBG Base Excess 6 H Quality Measures Quality Measures VTE prophylaxis Advance care planning discussed with:: patient and other Assessment & Plan Assessment Current Active Medications: Generic Name Dose Route Start Last Admin Trade Name Freq PRN Reason Stop Dose Admin Acetaminophen 650 mg 03/16/25 18:46 Acetaminophen 325 Mg Tablet PO 04/15/25 16:38 Q4HR PRN Fever or Pain 1-3 Diclofenac Sodium 2 gm 03/16/25 16:40 03/17/25 01:06 Diclofenac 1% Top Gel 100 Gm Tube TOP 04/15/25 16:39 2 gm Q6H PRN Administration Right shoulder pain Hydromorphone HCl 1 mg 03/16/25 18:46 Hydromorphone Inj 2 Mg/Ml Vial IVP 03/21/25 18:45 Q4HR PRN PAIN SCALE 7-10 Heparin Sodium/Dextrose 25,000 unit in 250 mls @ 10.614 mls/hr 03/16/25 15:30 03/17/25 06:51 Heparin In D5w Ivpb IV 03/30/25 15:29 18 units/kg/hr .[id number] RUFINO 10.614 mls/hr Protocol Titration 18 UNITS/KG/HR Doxycycline Hyclate 100 mg/ 100 mls @ 100 mls/hr 03/17/25 09:00 03/17/25 08:24 Sodium Chloride IV 03/24/25 08:59 100 mls/hr BID RUFINO Administration Piperacillin Sod/Tazobactam 100 mls @ 200 mls/hr 03/16/25 22:00 03/17/25 05:26 Sod 4.5 gm/ Sodium Chloride IV 03/23/25 21:59 200 mls/hr Q8HR RUFINO Administration Protocol Morphine Sulfate 2 mg 03/16/25 18:46 03/17/25 08:36 Morphine Sulf Inj 4 Mg/Ml Vial IVP 03/21/25 18:45 2 mg Q4HR PRN Administration PAIN SCALE 4-6 Plan Ms Reilly Siterlet is 74yF, with PMH of lung nodule and osteoblastic metastasis involving thoracic area, presented to the ED on 03/16/2025 for progressivly worsening generalized weakness. On Dec 2024, her lung nodule was incidently found on CXR. Yesterday (03/15) she had symptom of left leg paralysis and right leg weakness. Patient lost 30 lbs since last year. On 02/25/2025, patient was seen by Dr. Sevilla, Oncology, and was found out to have wide spread osteoblastic metastasis. 6.3 x 5.0 x 7.7 central pulm mass right upper lobe severely compressing the right lower lobe bronchus, multiple metastatic pulmonary nodules and solid endometrial mass. Pt recommended to schedule lung nodule biopsy during the visit. Patient complains of lower extremity numbness, left lower leg paralysis, right lower leg weakness. Patient was admitted due to generalized weakness secondary to widespread metastaic disease. Cardiology was consulted on 03/16/2025 for management of extensive bilateral DVT seen on Venous doppler imaging. #Extensive Bilateral DVT -Chest CTA (03/16/2025): Pulmonary artery hypertension, Negative for pulmonary artery emboli, Large right pleural effusion, Pulmonary mass again noted right lung impinging upon the right main pulmonary artery and right lower lobe pulmonary artery branches, Subcentimeter nodules left lung, Prominent vascular congestion, Diffuse pneumonia right lung -Venous Doppler US (03/16/2025): Extensive bilateral occlusive deep vein thrombus -Positive for deep vein thrombus involving the right common femoral right, superficial femoral veins and superficial greater saphenous vein -Positive for thrombus involving the left common femoral, superficial femoral, popliteal, peroneal veins and superficial greater saphenous vein -On examination, Bilateral lower extremity swelling, tenderness on palpation. No signficant redness noted -Imaging showed metastic cancer in bones, lungs, and in endometrium. -No recent surgery, Immobility, , hormonal therapy, or trauma -Elevated D dimer of 2480. BNP: 59, troponin 0.038. -HAS BLEED score of 1 (Low risk of major bleeding) Plan: -Continue Heparin drip and eventually transition to Eliquis for anticoagulation - Patient not a suitable candidate for thrombectomy and given her stage IV cancer with multiple metastasis, cachexia as well as overall poor prognosis. Also patient does not have any significant leg swelling or any signs of phlegmasia cerulea dolens and would only recommend medical management for now. #Sinus Tachycardia with PVCs -EKG showing sinus tachycardis with multiple PVCs. -Likely due to pleural effusion from her metastatic lung cancer -Treat underlying cause -Mg>2, K>4 #Metastatic lung cancer, pulmonary nodules #Osteoblastic disease of acromion #Osteoblastic disease of proximal humeral shaft #Osteoblastic disease of lower dorsal vertebral bodies #Osseous metastatic disease, right frontal bone #Large mass, right upper lobe #Mediastinal lymphadenopathy #Large right plerual effusion, likely malignant #Abnormal uterine endometrium -Management per Primary Hospitalist team Thank you for allowing us to participate in the care of Ms Melba Morelrhal. Cardiology will continue to follow. Assessment and plan discussed with my attending physician Dr. Matthew Guevara (PGY-1) - Internal medicine resident Attending Provider Attestation/Addendum I have personally seen and examined the patient separately on the above date of service and discussed the plan of care with the resident. I reviewed the resident Dr. Aristeo Guevara consultation progress note and agree with the resident findings and plan in the note above and have also edited the documentation to reflect my findings and plan. Rishi Castro M.D. Interventional Cardiology
--- NOTE | 2025-03-17 10:34 | XR_ITS ---
Examination: CT thoracic spine, without contrast. 2-D sagittal reconstructions. 2-D coronal reconstructions. 3-D reconstructions. Date and time of exam: March 17, 2025 at 1132 hours INDICATIONS: History lung carcinoma, widespread osseous metastatic disease on CT imaging March 16, 2025 CTDI: vol (mGy): 50 DLP: (mGycm): 1733 Technique: Multiple 1.25 mm axial sections of the 60 cc Isovue-370 have been obtained. 2-D sagittal and coronal reconstructions have been obtained. 3-D reconstructions have been obtained. Low dose protocols were performed. One or more of the following dose reduction techniques were used; automated exposure control, adjustment of the mA and/or KV according to patient size, use of iterative reconstruction technique. Findings: Widespread osteolytic osteoblastic metastatic disease Pathologic compression fracture T11 retropulsion of this vertebral body 10 mm Severe bone destruction T2 vertebral body, severe spinal stenosis, retropulsion of this vertebral body 9 mm Multiple osteolytic lesions involving all visualized thoracic vertebral bodies IMPRESSION: Widespread osteolytic osteoblastic metastatic disease Pathologic compression fractures T11, T2 Severe spinal stenosis at the T2 level MRI thoracic spine post contrast follow-up strongly recommended to confirm severe spinal cord compression at the T2 level
--- NOTE | 2025-03-17 10:34 | XR_ITS ---
CT of the cervical spine with and without intravenous contrast media. Study dated 03/17/2025 at 12:26 p.m. Contrast media: 140 mL of Isovue-370 IV. CLINICAL HISTORY: Extensive metastatic disease all over, with innumerable metastatic lesions throughout the skeleton, predominantly osteoblastic. Rule out pathologic compression fracture. FINDINGS: 1. In the soft tissues of the neck, no worrisome abnormalities are seen. There is a tiny low-density 6 mm diameter nodule in the lower right lobe of the thyroid gland of doubtful significance. The upper airways and larynx and vestibule and upper trachea all appear normal. There is a huge dependent pleural effusion in the right hemithorax. On bone windows there is a very extensive expansile metastatic lesion involving the the upper body and mandibular condyle on the left side of the mandible In the cervical spine at the level of C2-C3 there is major advanced DJD in the posterior facet joint on the right. At C3-C4 there is major DJD in the left posterior facet joint and significant disc space narrowing. At C4-5 there is major DJD in both right and left facet joints and prominent disc space narrowing and osteophyte formation. The DJD creates significant narrowing of the right neural foramen at C4-5,. At C5-6 there is prominent osteophyte formation in the joints of Luschka on the right side creating significant neural foraminal narrowing. The body of C6 is entirely replaced with blastic metastatic disease, and there is osteolytic metastatic disease involving the left posterior aspect of the body and spinous process and left lateral mass of C6, almost certainly creating significant neural compromise on the left. There is blastic and lytic metastatic disease involving the body of C7. Below this level there are innumerable large and small blastic and lytic metastatic lesions. The most significant 1 is extensive lytic metastatic disease involving the entire vertebra at T2, with major 80% compression fracture and significant neuroforaminal narrowing on the right at T1-T2. There is also extensive blastic metastatic disease involving the body of T2. On the contrast-enhanced images this the appearance of the common carotid and internal carotid arteries on both sides of the neck appear all right, likewise both vertebral arteries and the basilar artery and the posterior fossa appear essentially normal. There appears to be normal contrast enhancement of the internal carotid arteries in the cavernous sinus region bilaterally. IMPRESSION: 1. There is extremely widespread major metastatic disease involving the mandible on the right side, and all of the cervical vertebra below the level of C3. 2. The metastatic disease is very significant involving the entire body of C6 together with significant destruction of its left posterior aspect along with the left lateral mass of C6. Next number at T2, there is extensive lytic metastatic disease with about 80% pathologic compression fracture. Please see above
--- NOTE | 2025-03-17 10:34 | XR_ITS ---
CT of the lumbosacral spine with IV contrast infusion on 03/17/2025 at 12:23 p.m. INDICATION: Known extensive metastatic disease. Rule out pathologic compression fractures and spinal canal stenosis Contrast media: 60 mL of Isovue-370 IV FINDINGS: 1. There is extremely extensive bony metastatic disease involving all 5 lumbosacral vertebra as well as major involvement of T12 and T11. There appears to be a probable significant compression fracture at T11, there appears to be significant neuroforaminal narrowing on the left at T11-12. All of the other neuroforamen appear reasonably normal. There is prominent disc space narrowing at T11-12, related to the extensive metastatic disease, the other intervertebral disc spaces are essentially well maintained. At T12 the metastatic disease is most prominent posterolaterally on the left side where it appears ready to produce a significant compression fracture in the near future. At L1 there is very extensive predominantly blastic metastatic disease, no compression fracture at this time At L2, there are several small blastic metastatic lesions but there does not appear to be any impending pathologic fracture. At L3 there are prominent blastic and lytic metastatic lesions on the right side of the vertebral body beginning to produce very minimal early compression fracture in this area. Other smaller blastic metastatic lesions are seen on the left side at L3. At L4 there are multiple blastic metastatic lesions involving the vertebral body and posterior vertebral elements. At L5 there is very extensive blastic and lytic metastatic disease. This is most significant on the right side of the vertebra where the appearance suggests the strong probability of impending pathologic fracture of the body. There is no compression fracture at this point in time. The entire sacrum is virtually completely replaced by blastic and lytic metastatic disease. Both kidneys are well seen and normal. I do not see There appears to be a small surgical clip in the region of the right a adrenal gland. The left adrenal gland is slightly definitely enlarged retains its normal shape IMPRESSION: 1. There is extremely extensive and extremely widespread metastatic disease in all visible bones, predominantly osteoblastic, with numerous lytic lesions as well 2 please see above discussion regarding findings at each level throughout the lumbosacral spine.
[2025-03-17] MEDS: SODIUM CHLORIDE 0.9% 500 ML 500 ML 999 ML IV (10:46)
--- NOTE | 2025-03-17 10:47 | PC.SS ---
Follow up note: Thoracentesis today. Dr. Sevilla is consulting. Cardio recommendations pending.
[2025-03-17] MEDS: SODIUM CHLORIDE 0.9% 1000 ML 1,000 ML 100 ML IV (11:24)
[2025-03-17] MEDS: HYDROmorphone INJ 2 MG/ML VIAL 1 MG IVP (11:51)
[2025-03-17 12:06] LABS: Hematocrit 32.5 % (36.0-46.0); Hemoglobin 10.6 g/dL (12.0-16.0)
[2025-03-17 12:39] LABS: Partial Thromboplastin Time 55.5 Seconds (22.0-36.0)
--- NOTE | 2025-03-17 13:32 | XR_ITS ---
Examination: Pelvic ultrasound, transabdominal, complete Technique: Transabdominal ultrasound of the pelvis performed using grayscale imaging Date and time of exam: March 17, 2025, 1520 hours INDICATIONS: Thickened endometrium on CT pelvis March 16, 2025 FINDINGS: Uterus 9.0 cm endometrial complex mass versus endometrial stripe mass 4.9 x 3.8 x 4.0 cm Ovaries obscured by contrast IMPRESSION: Endometrial mass as above, differential would include malignant neoplasm of the endometrium, recommend MRI pelvis follow-up pre and postcontrast
[2025-03-17] MEDS: Heparin/D5w 25K 250 ML Ivpb 25,000 UNIT/250 ML BAG 10.614 UNIT IV (13:40)
--- NOTE | 2025-03-17 17:58 | XR_ITS ---
EXAMINATION: AP chest single view TECHNIQUE: AP portable upright chest single view Date and time: March 17, 2025, 1806 hours, comparison March 16, 2025 INDICATIONS: Weakness shortness of breath today. FINDINGS: Worsening total opacification right hemithorax on the current study, with large right pleural effusion Mild prominence left ventricle Prominent vascular congestion with septal edema in the left lung Widespread osteolytic osteoblastic metastatic disease IMPRESSION: Worsening severe pneumonia in the right lung with probable large right pleural effusion, consider ultrasound-guided hemothorax follow-up At least mild heart failure
--- NOTE | 2025-03-17 18:07 | PD.RESEVENT ---
Documentation for date of: 03/17/25 Event Note Event Note: Rapid Response Time: Approximately 1750 Reason for Call: Acute hypoxemia Nurse has called during rounds about increased oxygen demand and worsening respiratory effort. On arrival, she was on maximum oxygen thru NS, satting in mid 80s with RR in upper 30s. She appeared dyspnic on exam, complained of shortness of breath and feeling like she cannot breath in. She had diffuse crackles and lung exam with substernal retractions and use of accessory muscles. She was immediately placed on HFNC without significant improvement in oxygenation, with O2-sat remained around 80s. , Viral, was notified over the phone who stated he cannot drive at night and want us to proceed with whatever we feel is right for the patient. We had discussed our concerns with Melba, who was A&OX4 and demonstrated full decision-making capacity, and she elected to undergo emergent right-sided thoracenthesis. ED doctor was called who kindly helped with performing the procedure. CXR was done showing worsening right-sided pleural effusion. Thoracenthesis was performed successfully at bedside, and about 1L of serous fluid was removed with minimal blood loss. We had also ordered: CBC and CMP showed no significant change, normal lactic acid, normal troponin. ABG showed pH 7.15, pCO2 81, HCO3 28. Post-procedure CXR showed small right apical PTX and possible inferior PTX. She reported feeling better after the procedure. Maintain on HFNC and maintaining low 90s sats. Of note: During the RR, I revisited code status and GOC with her, with nurse, RT and co-residents at bedside. Prior to performing thoracenthesis, I had asked about her wishes in case her condition worsens. The patient, who was A&OX4 with full decision-making capacity, states she wants to remain DNR and wants to be made comfort measures in case her condition worsens but agreed to HFNC and thoracenthesis. was also notified of the decision and agrees to the plan. She has on HEPARIN drip for extensive LE DVT. RT was appropriately concerned about placing BiPAP given she is high risk for PE. Unfortunately, she remains unstable to undergo CTA at this time. Earlier today: multiple GOC discussion were had with patient and at bedside. We had highly recommended urgent thoracenthesis and had asked ICU team who visited and evaluated patient. However, she persistently declined any procedures for today and states she feels tired and wants to wait for tomorrow for the procedure. Risk (including respiratory failure) and benefits were discussed. Again, she showed full decision-making capacity, and was in agreement with the plan. Earlier today, we had obtained CT spine given her neurological deficits which showed multiple bony mets and acute fractures (see reports). We had also reached out to her oncologist, Dr. Sevilla, and informed him of the findings, and he had recommended against aggressive treatment given her poor prognosis. We had ordered MRI brain to rollout brain mets given the needs for HEPARIN drip. Patient, again, elected to wait another day prior to obtaining the MRI. She understood the risk of continuing with anticoagulations without r/o brain mets, i.e. risk of brain bleed. Case was discussed with attending physician. Leonard Stoner, PGY II This document was transcribed using voice recognition technology. Minor inaccuracies may be present.
[2025-03-17 18:08] LABS: Base Excess -3 (-3-3); Basophils # (Auto) 0.0 Thou/mm3 (0.0-0.2); Basophils % (Auto) 0 % (0-2.5); Eosinophils # (Auto) 0.0 Thou/mm3 (0.0-0.5); Eosinophils % (Auto) 0 % (0-10); HCO3 28 mEq/L (20-26); Hematocrit 34.7 % (36.0-46.0); Hemoglobin 11.1 g/dL (12.0-16.0); Immature Granulocytes Auto 0.06 Thou/mm3 (0.00-0.00); Inspired Oxygen, FIO2 21 %; Lactate (Lactic Acid) 1.2 mMol/L (0.4-2.0); Lymphocytes # (Auto) 1.3 Thou/mm3 (1.0-4.8); Lymphocytes % (Auto) 11 % (10-50); Mean Corpuscular HGB Conc 32.0 g/dl (31.0-37.0); Mean Corpuscular Hemoglobin 27.6 pg (25.0-35.0); Mean Corpuscular Volume 86 fL (80-100); Monocytes # (Auto) 0.7 Thou/mm3 (0.0-0.8); Monocytes % (Auto) 6 % (0-12); Neutrophils # (Auto) 9.5 Thou/mm3 (1.8-7.7); Neutrophils % (Auto) 82 % (37-80); Nucleated Red Blood Cell # 0.00 Thou/mm3 (0.00-0.00); Nucleated Red Blood Cell % 0 /100 WBC (0); O2 Saturation 86 % (91-98); PCO2 81 mmHg (32.0-48.0); PO2 66 mmHg (83-108); Platelet Count 255 Thou/mm3 (140-440); RDW Standard Deviation 55.4 fL (36.4-46.3); Red Blood Count 4.02 Miln/mm3 (4.00-5.20); White Blood Count 11.6 Thou/mm3 (3.6-11.0)
[2025-03-17 18:15] LABS: Allen Test Performed/OK; Puncture Site Left Radial; pH, Arterial 7.15 (7.35-7.45)
--- NOTE | 2025-03-17 18:33 | EDNOTE_ITS ---
Emergency Room Addendum Addendum Narrative: 0620h: Called by resident regarding pt for assistance with thoracentesis for large right pleural effusion with respiratory distress and hypoxia on the floor. Discussed procedure with patient who is agreeable. Bedside ultrasound used to locate fluid pocket to right pleural space. Using aseptic technique with chlorhexidine cleansing and sterile draping, thoracentesis needle inserted above level of the rib with initial 3ml of yellow clear fluid obtained. Catheter inse rted with removal of needle and attachment of tubing to vacuum container with approx 1400ml drained. Small amount of blood noted towards end of drainage. Catheter removed and bandage placed with repeat cxr to be ordered by medicine team.
--- NOTE | 2025-03-17 18:33 | XR_ITS ---
EXAMINATION: AP chest single view TECHNIQUE: Sitting portable AP chest single view Date and time: March 17, 2025, 1849 hours, comparison March 17, 2025 1806 hours INDICATIONS: Status post thoracentesis today FINDINGS: There remains total opacification right hemithorax Right apical pneumothorax estimated less than 10% Possible pneumothorax line over the lower lung zone Heart failure pattern again depicted with extensive pneumonia in the right lung Osteoblastic metastatic disease IMPRESSION: Small right apical pneumothorax Possible inferior pneumothorax Recommend short-term follow-up chest films
[2025-03-17 18:44] LABS: Alanine Aminotransferase 12 U/L (10-49); Albumin, Serum 3.5 gm/dL (3.4-4.8); Albumin/Globulin Ratio 1.3 (1.2-2.2); Alkaline Phosphatase 1161 U/L (46-116); Anion Gap 11 (7-16); Aspartate Amino Transferase 92 U/L (0-34); BUN/Creatinine Ratio 37 Ratio (12-20); Bilirubin,Total 0.6 mg/dL (0.3-1.2); Blood Urea Nitrogen 22 mg/dL (9-23); Calcium 8.7 mg/dL (8.3-10.6); Calcium (Corrected) 9.1 mg/dL (8.5-10.1); Carbon Dioxide 23.3 mMol/L (20.0-31.0); Chloride 103 mMol/L (98-107); Creatinine (Component) 0.6 mg/dL (0.6-1.3); Estimated Creatinine Clearance 70.5 mL/min (>60); Globulin 2.7 gm/dL (2.3-3.5); Glucose 130 mg/dL (74-106); Osmolality,Calculated 279 (275-295); Potassium 4.5 mMol/L (3.4-5.1); Sodium 137 mMol/L (136-145); Total Protein 6.2 gm/dL (5.7-8.2); Troponin I < 0.020 ng/mL (0.0-0.045); eGFR > 60 See Note
[2025-03-17 19:52] LABS: Pleural Fluid Appearance Clear; Pleural Fluid Color Straw
[2025-03-17 19:55] LABS: Pleural Fluid Mononuclear 67.7 %; Pleural Fluid Polynuclear 32.3 %; Pleural Fluid WBC 365 /cmm
[2025-03-17 19:58] LABS: Pleural Fluid RBC 1000 /cmm
[2025-03-17 20:25] LABS: Amylase,Pleural Fluid 32 IU/L; Glucose,Pleural Fluid 114 mg/dL; LDH,Pleural Fluid 153 IU/L; Protein Total,Pleural Fluid 3.7 g/dL
--- NOTE | 2025-03-17 20:35 | XR_ITS ---
EXAMINATION: AP chest single view TECHNIQUE: AP portable semiupright chest single view Date and time: March 17, 2025, 2035 hours, comparison 6:46 p.m. FINDINGS: Right apical pneumothorax slightly increased in size, estimated still less than 10% Prominent opacification right hemithorax with edema and pneumonia in the left lung and enlarged cardiac contour IMPRESSION: Right apical pneumothorax slightly increased in size, recommend continued short-term follow-up chest x-rays
--- NOTE | 2025-03-17 20:35 | PC.NURSE ---
Called hospitalist, spoke to resident Dr. Sweeney, made aware BP is low, rechecked multiple times. Initial BP 80/50 MAP 60, last BP 83/58 MAP 66, HR 86. Pt is alert/oriented x3, no acute distress noted. No new orders received at this time.
--- NOTE | 2025-03-17 20:40 | PC.NURSE ---
Resident Dr. Boyce at bedside, per MD discontinue IV fluid NS @100ml/hr and will put in new orders. Ok to continue to check vital signs every 4 hrs per unit protocol.
--- NOTE | 2025-03-17 21:10 | PD.RESPROC ---
PROCEDURES: Procedure Date / Time 03/17/252109 Thoracentesis Indication(s): symptomatic Pleural Effusion Informed consent obtained from: other (, Viral) Time out done, and the following verified: correct patient, side and site, procedure, patient position and implants and/or equipment Ultrasound used: Yes Procedure location: rt. post pleural space Amount pleural fluid removed (ml): 1,000 EBL(ml): 5 Procedure comment: After obtaining informed consent and performing a time-out, the patient was placed in a seated, leaning forward position. The right posterior chest was prepped and draped in a sterile fashion, and local anesthesia was achieved using 1% lidocaine. Under ultrasound guidance, a needle was introduced into the pleural space through the 8th intercostal space at the mid-scapular line. A total of 1,000 mL of serous fluid was successfully evacuated via a dedicated drainage catheter. The procedure was uncomplicated with minimal blood loss, estimated at 5 mL. The catheter was removed, and a sterile dressing was applied; the patient tolerated the procedure well without immediate respiratory distress. Pleural fluid samples were collected and sent to the laboratory for diagnostic analysis and cytology. Nava Post-Procedure Details Total Volume: 1,000 mL Fluid Appearance: Serous Estimated Blood Loss (EBL): 5 mL Specimens: Chemistry, Cell Count, Culture, and Cytology
[2025-03-17 21:43] LABS: Base Excess, Venous 0 (-3-3); O2 Saturation, Venous 50 % (96-97); PCO2, Venous 60 mmHg (36-56); PO2, Venous 30 mmHg (15-58); pH, Venous 7.27 (7.33-7.66)
--- NOTE | 2025-03-17 23:00 | XR_ITS ---
EXAMINATION: AP chest single view TECHNIQUE: AP portable semiupright chest single view Date and time: March 17, 2025, 11:04 p.m., comparison 8:36 p.m. FINDINGS: Stable small right apical pneumothorax Very extensive opacification in the right hemithorax Stable cardiac contour with vascular congestion IMPRESSION: Stable small right apical pneumothorax
[2025-03-18] VITALS: BP 83/63; PULSE 66; PULSE 71; RESP 20; TEMP 36.1; O2SAT 95
--- NOTE | 2025-03-18 00:05 | PC.NURSE ---
Called Resident Dr. Boyce again regarding BP, 75/53 MAP 60, pt is awake/alert, no acute distress noted. Per MD will order midodrine.
--- NOTE | 2025-03-18 00:15 | PC.NURSE ---
Residents Dr. Boyce and Dr. German at bedside, recheck BP 83/63 MAP 69, hold midodrine for now; may give midodrine if next BP has a MAP <65
--- NOTE | 2025-03-18 01:49 | PC.NURSE ---
Late entry 03/16/251999 While assessing pt, pt was able to turn on her left side with max assistance, pt did not tolerate long enough to take a photo of sacrum. Noted redness and 2 small open areas on sacrum. Pt requested to be done later. 03/17/2530 Attempted to take photo of sacrum at this time; however, geospatial technologist at bedside, will endorse to day shift photo not taken.
[2025-03-18 02:07] VITALS: BP 92/57; PULSE 75
[2025-03-18 02:20] VITALS: PULSE 77; RESP 38; O2SAT 94
[2025-03-18 04:00] VITALS: BP 80/61; PULSE 70; PULSE 76; RESP 14; TEMP 36.1; O2SAT 93
[2025-03-18 04:37] VITALS: BP 80/61; BP 98/54; PULSE 39; PULSE 69; PULSE 70; RESP 12; RESP 14; TEMP 35.5; TEMP 36.1; O2SAT 58; O2SAT 93
--- NOTE | 2025-03-18 04:48 | PD.RESEVENT ---
Documentation for date of: 03/18/25 Event Note Event Note: Rapid Response Room:?265 Time:?0438 Reason for Call:?Desaturation to 70% on HFNC 40L/100% Patient presentation:?Patient found agonal breathing and not responsive Events:? Rapid response was called at 0438 for acute desaturation to 70% O2 on 40L/100%. Patient appeared to be in agonal breathing and not responsive to any stimulation. Vitals would be retaken, which showed HR 39, temperature 95.9, unobtainable BP, and O2 saturation of 58%. The patient's , Viral Samaniego, was contacted at 0442 to discuss the patient's status as intubation was not pursued given DNR/DNI status. Hospitalist team discussed with the patient's regarding the acute deterioration in the patient's respiratory status. The patient's opted to pursue COMFORT CARE instead of changing the patient's CODE STATUS or pursuing further invasive treatment. The patient remained unresponsive at the conclusion of the rapid response, and COMFORT CARE set orders were placed. The patient's plans to see the patient as soon as he can. New orders: Comfort measures, oral care as needed, morphine 5mg IVP x1, morphine drip, scopolamine patch Patient was discussed with the attending, Dr. Yeny Sweeney, PGY-1
[2025-03-18] MEDS: MORPHINE SULF INJ 4 MG/ML VIAL 5 MG IVP (04:55)
[2025-03-18] MEDS: SCOPOLAMINE 1 MG TDSY TOP (05:25)
[2025-03-18] MEDS: Morphine IV Drip 100mg/100ml 100 ML IV (05:38)
[2025-03-18 05:39] VITALS: BMI 25.0
--- NOTE | 2025-03-18 06:22 | PD.DPN ---
Documentation for date of: 03/18/25 Pronouncement Note Date and Time of Date of : 03/18/25 Time of : 05:58 PCOD Preliminary cause of : Cardiopulmonary arrest Summary Additional details: Nursing staff notified physicians that the patient no longer had a pulse and ceased respirations. Patient was seen and examined at the bedside, no pulses could be felt, no cardiac sounds were heard after 1 continuous minute of auscultation, no breath sounds heard, and pupils were fixed and dilated. Patient pronounced at 0558. Patient plan of care was discussed with attending physician Dr. Yeny Sweeney, PGY1 Additional Data Confirmation of : no pulse, no respirations, no heart sounds and pupils fixed and dilated Family: contacted Attending/PCP notified?: Yes Attending physician: Jocelyn Oconnor MD Was code activated?: No
--- NOTE | 2025-03-18 07:01 | DES_ITS ---
<Statement entered by Jocelyn Oconnor MD - 03/22/25 12:53> I reviewed above note and agree with findings and plans. I have also personally examined the patient with medicine team and went over assessment and plan with medical team including programming intern and resident physician. <Statement entered by Leonard Stoner MD - 03/18/25 12:40> In summary: A 74-year-old female with newly diagnosed, widespread metastatic disease, including a primary lung mass, osseous metastases, and spinal cord compression, admitted on 03/16/25 for progressive weakness and bilateral leg paralysis. Her hospital course was rapidly complicated by extensive lower extremity blood clots and acute respiratory failure caused by a large pleural effusion, which required an emergent thoracentesis. Despite temporary improvement after the procedure, her condition significantly deteriorated early on 03/18/25 with acute bradycardia and severe hypoxia. In accordance with the patient?s previously stated wishes to prioritize comfort if her condition worsened, she was transitioned to comfort measures during a rapid response call. Following this transition, the patient's heart rate and respirations ceased. She was clinically examined and pronounced at 0558 on 03/18/25, with her notified over the phone and updated on the transition and subsequent passing. I?ve reviewed the note and agree with this assessment and plan, with the exceptions outlined above. I personally went over the labs, imaging, home medications, and prior records, and examined the patient. The case was also reviewed with the attending physician. Please note: this document was transcribed using voice recognition technology; minor inaccuracies may be present. Leonard Stoner DO PGY II Documentation for date of: 03/18/25 Summary Date and Time Date of admission: 03/16/25 15:14 Date of : 03/18/25 Time of : 05:58 Summary Details: At approximately 0437, rapid response called for acute bradycardia below 40 and new onset of difficulty breathing with O2 saturation below 85%. britta mitchell ated over the phone on patient's rapid deteriorating condition. Transitioned to comfort measure at that time per prior discussion with patient yesterday. Earlier this morning, nursing staff notified physicians that the patient no longer had a pulse and ceased respirations. Patient was seen and examined at the bedside, no pulses could be felt, no cardiac sounds were heard after 1 continuous minute of auscultation, no breath sounds heard, and pupils were fixed and dilated. Patient pronounced at 0558. Hospital Course: Mrs. Alcaraz is a 74 years old female with history of lung nodule and osteoblastic metastasis involving thoracic area presents to the ED for generalized weakness on 03/16/25. Per patient, she does not regularly follow up with a doctor. The last time when she saw one was reported to be in Dec, [address] [facility] for back pain, where they found an lung nodule on her chest XR. Since then, the patient had became progressively weak. On 03/15/25 (the day prior to admission), the patient's can no longer assist her with walking due to left leg paralysis and right leg weakness, which prompted them to seek care in the ER. Patient stated that since last , she started on a diet, and had lost 30 pounds, but did not think her weight loss was due to cancer. She denies night sweat, cough, nausea, chest pain, shortness of breathe, but does endorse malaise and generalized weakness that had became worse recently. Upon chart review, it was noted patient had seen Dr. Sevilla (oncology), and was recommended and scheduled for an upcoming lung nodule biopsy. Per Dr. Sevilla's note, patient has right upper lobe pulmonary mass, multiple metastatic pulmonary nodules, extensive mediastinal lymadenopathym widespread osseous metastatic disease, and solid endometrial mass. She was admitted for generalized weakness likely secondary to widespread metatstatic disease. In the ED, she was found to have extensive bilateral lower extremity DVTs, and was promptly started on heparin drip. Cardiology was consulted, and will evaluate for the need of thrombectomy given the extensive occlusive DVT involving bilateral common femoral veins. On day 1 of admission, tumor markers returned positive for CEA, CA 153, and CA 125. CT cervical, thoracic, and lumbar was ordered due to concern of possible compression of spinal cord from tumor given patient's new onset of lower extremity weakness and paralysis. CT scans revealed widespread osteolytic osteoblastic metastatic disease from cervical spine to lumbar spine. Pathologic compression fractures T11, T2. Severe spinal stenosis at the T2 level. Oncology Dr. Sevilla was consulted, suggested guarded prognosis with no plan for emergent neurosurgical intervention at this point. At approximately 1750 on 03/17/25, a rapid response was called for increased oxygen demand. An emergent thoracentesis was performed to relieve right pleural effusion from compressing patient's right lung. Patient's oxygen status improved status post procedure. Please see rapid response note for further details. A goal of care discussion was held at bedside prior to thoracentesis. Patient wished that in case her condition worsens, she wished to transition from DNR to comfort care. was notified and agrees to the plan. On twisthand of 03/18/25, another rapid response was called for acute hypoxia. Please see rapid response note for further details. Given pateint's rapidly decline clinical status, it was deemed appropriate for her to transition to comfort care. At 0558 this morning, hospitalist team was notified that patient no longer had pulse and ceased repiration. Patient prononced at 0558. Family updated. Diagnosis: #Comfort care measures #Bilateral DVT #Right common femoral DVT #Right superficial femoral DVT #Right superficial saphenous DVT #Left common femoral DVT #Left superficial femoral DVT #Left popliteal DVT #Left peroneal DVT #Left superficial greater saphenous DVT #Metastatic lung cancer, pulmonary nodules #Osteoblastic disease of acromion #Osteoblastic disease of proximal humeral shaft #Osteoblastic disease of lower dorsal vertebral bodies #Osseous metastatic disease, right frontal bone #Metastatic disease of right mandible #Metastatic disease of cervical vertebra #Metastatic disease of thoracic vertebra #Pathologic compression fractures T11, T2 #Severe spinal stenosis at the T2 level #Metastatic disease of lumbar vertebra #Large mass, right upper lobe #Mediastinal lymphadenopathy #Large right plerual effusion, likely malignant, s/p emergent thoracentesis 03/17/25 #Abnormal uterine endometrium #Sinus tachycardia with frequent PVCs Discharge Plan: . Time of 03/18/25 0558. Case discussed with my senior resident Dr. Stoner Case discussed with my attending Dr. Anastasia Olivo DO PGY 1 Additional Data Confirmation of as documented by pronouncing clinician: no pulse, no respirations, no heart sounds and pupils fixed and dilated Family: contacted Attending/PCP notified?: Yes Attending physician: Jocelyn Oconnor MD Was code activated?: No Autopsy requested?: No Visit Providers Provider Primary care physician: Luis Carlos Aguayo MD Consults: 03/16/25 15:23 Consult to Oncology Routine Comment: Consulting Provider: Roly Sevilla 03/16/25 16:36 Consult to Cardiology Routine Comment: Consulting Provider: Rishi Castro Diagnosis PCOD Cause of : Cardiopulmonary arrest Discharge Plan Plan Patient Disposition: Prescriptions/Referrals Referrals: Luis Carlos Aguayo MD [Primary Care Provider] Patient/Caregiver Discharge Instructions Print Language: Mongolian
--- NOTE | 2025-03-18 07:25 | PC.NURSE ---
0647 Donor network called, spoke to Cathy, refferal #[phone]-Received call from Jose Carlos from donor network, ok to release remain, will not be following for donor.
[2025-03-24 07:06] LABS: CA 19-9 Antigen* 58 U/mL (<34)
== END 2025-03-18 05:58 | disposition expired | DRG 180 ==
LOC: SERX 08:37 → SERHOLD 15:24 → S2NX 17:48
PROVIDERS: Internal Medicine Cardiovascular Disease; Admitting Provider Internal Medicine; Emergency Provider Emergency Medicine; PCP Student in an Organized Health Care Education/Training Program; Visit Provider Internal Medicine
DX: C34.90 Malignant neoplasm of unspecified part of unspecified bronchus or lung (principal); J18.9 Pneumonia, unspecified organism; C79.51 Secondary malignant neoplasm of bone; I82.413 Acute embolism and thrombosis of femoral vein, bilateral; I82.432 Acute embolism and thrombosis of left popliteal vein; I82.452 Acute embolism and thrombosis of left peroneal vein; J91.0 Malignant pleural effusion; G82.20 Paraplegia, unspecified; M48.54XA Collapsed vertebra, not elsewhere classified, thoracic region, initial encounter for fracture; R64 Cachexia; J93.9 Pneumothorax, unspecified; I50.9 Heart failure, unspecified; R63.4 Abnormal weight loss; I27.21 Secondary pulmonary arterial hypertension; I49.3 Ventricular premature depolarization; M48.04 Spinal stenosis, thoracic region; Z99.3 Dependence on wheelchair; R59.0 Localized enlarged lymph nodes; Z51.5 Encounter for palliative care; Z66 Do not resuscitate; Z74.01 Bed confinement status; I46.8 Cardiac arrest due to other underlying condition
CPT/HCPCS: 36415; 36600; 51701; 70450; 71045; 71275; 72126; 72129; 72132; 73030; 74177; 76856; 80053; 81001; 82010; 82150; 82248; 82378; 82550; 82803; 82945; 83036; 83605; 83615; 83690; 83735; 83880; 84100; 84145; 84157; 84443; 84484; 85014; 85018; 85025; 85379; 85610; 85652; 85730; 86140; 86300; 86301; 86304; 87040; 87070; 87075; 87205; 87635; 89051; 93005; 93306; 93970; 96361; 96365; 96375; 99284; A4649; J0456; J0696; J1171; J1644; J2270; J2405; J2470; J2543; J3490; J7030; J7050; J7120; J7999; Q9967; A9270